=== PATIENT | female | born 1945 | race Caucasian/White ===

== ENCOUNTER 2017-05-04 16:07 | Inpatient (IN) ==
[2017-05-04] MEDS ORDERED: VANCOMYCIN INJ 1,000 MG in SODIUM CHLORIDE 0.9% 250 ML IV STA (16:51)
[2017-05-04] MEDS ORDERED: oxyCODONE/ACETAMINOPHEN 5-325 MG TABLET PO PRN (16:54)
[2017-05-04] MEDS ORDERED: ACETAMINOPHEN 325 MG TABLET PO PRN (16:54)
[2017-05-04] MEDS ORDERED: IBUPROFEN 600 MG TABLET PO PRN (16:54)
[2017-05-04] MEDS ORDERED: ONDANSETRON 4 MG/2 ML VIAL IV PRN (16:54)
[2017-05-04] MEDS ORDERED: DEXTROSE 50% 25 GM/50 ML VIAL IV PRN (16:54)
[2017-05-04] MEDS ORDERED: GLUCAGON 1 MG VIAL IM PRN (16:54)
--- NOTE | 2017-05-04 16:54 | Emergency Department Note ---
Natalie Winston Mantricia, am scribing for, and in the presence of, Armand Avila MD 16:51. Austin Winston Robert M, MD, personally performed the services described in this documentation, ascribed by Niels Estrada in my presence, and it is both accurate and complete 654 . Arrival - Arrival Chief Complaint: Extremity Problem Stated Complaint: left foot ED Nursing Triage Note: PT C/O OPEN,DRAINING DIABETIC WOUND TO left FOOT. PT HAS BEEN SEEING DR SAHNI III- HAS APPOINTMENT LATER IN WEEK. Mode of Arrival: Wheelchair Limitations: No Limitations Source: Patient, Family - History of Present Illness HPI Narrative: Pt is a 72 y/o white female arriving to ED with c/o a wound to left foot that worsened 2 days ago. Pt is a diabetic and states that she has had the wound on her right foot for "a while"; however, she states that the area began to swell, drain, and become extremely red within the past 2 days. She reports that her right foot has always been numb because of the wound, so when she felt her foot hurting, she became worried and removed the dressing from the area. After removing the dressing, she noticed that the wound had become enlarged and began to drain. Pt reports that she has been seeing Dr. Sahni for the wound; however he is out of town this week, so she has an appointment with Dr. Waldron [address] Lara recently performed surgery on her left foot. She reports no other complaints to ED. Onset (ago): hour(s) Consistency: constant Severity: mild Allergies/Adverse Reactions: Allergies Allergy/AdvReac Type Severity Reaction Status Date / Time Enoxaparin [From Lovenox] Allergy HIVES Verified 05/04/17 16:19 Home Medications: Home Medications Medication Instructions Recorded Confirmed Type Aspirin [Ecotrin] 81 mg PO DAILY 08/13/15 05/04/17 History Estrogens(Conj) Tab [Premarin Tab] 0.9 mg PO DAILY 08/13/15 05/04/17 History Levothyroxine Tab [Synthroid Tab] 175 mcg PO DAILY 08/13/15 05/04/17 History Insulin Glargine [Lantus] 35 unit SUBCUT BEDTIME 11/13/15 05/04/17 History Losartan/Hydrochlorothiazide 1 each PO DAILY 11/13/15 05/04/17 History [Losartan-Hctz 50-12.5 mg Tab] Pravastatin [Pravachol] 20 mg PO DAILY 11/13/15 05/04/17 History Pantoprazole Tab [Protonix Tab] 40 mg PO BID #60 tablet 11/19/15 05/04/17 Rx Insulin Lispro [HumaLOG] See Protocol SUBCUT DAILY 05/04/17 05/04/17 History Review of System - Review of System 12 point system: reviewed and no additional remarkable complaints except as stated - Review of System Constitutional: Present: chills. Absent: diaphoresis, fever Cardiovascular: Absent: chest pain Gastrointestinal: Absent: abdominal pain, nausea, vomiting Genitourinary female: Absent: abnormal menses Musculoskeletal: Present: other (wound to left foot). Absent: arm pain, back pain, lower back pain, leg pain, neck pain Skin: Absent: rash, lesions Medical,Surgical,& Family Hx - Medical History Cardio: History of: CHF, Hypertension Neurology: History of: Peripheral Neuropathy No history of: Seizures HEENT: History of: HEENT Problems Endocrine: History of: Diabetes Mellitus (IDDM), Dyslipidemia, Thyroid Disorder Genitourinary: History of: Bladder Problem (incontinence) Gastrointestinal: History of: GERD Musculoskeletal: History of: Back/Neck Problems, Musculoskeletal Problems ( Charcot's joint the right foot) Reproductive: History of: Reproductive Problems (PROLAPSED FEMALE ORGANS) - Surgical History HEENT Surgeries: Surgical HX of: Thyroid Surgery (removal), Tonsilectomy & Adenoidectomy Abdominal Surgeries: Surgical HX of: Cholecystectomy Reproductive Surgeries: Surgical HX of;: Gynecologic Surgery, Hysterectomy Orthopedic Surgeries: Surgical HX of;: Orthopedic Surgery, Total Hip Replacement (right) - Family History Family History: Reports;: Family Cancer (brother-prostrate/colon), Family Diabetes (father, paternal aunt, paternal uncle), Family Hypertension (father) - Social History Smoking Status: Former smoker Frequency of Alcohol Use: None Type of Drug Use: None Exam Vital Signs: Vital Signs Temperature 99.1 F 05/04/17 16:09 Pulse Rate 97 H 05/04/17 16:33 Respiratory Rate 18 05/04/17 16:33 Blood Pressure 151/75 05/04/17 16:33 O2 Sat by Pulse Oximetry 99 05/04/17 16:33 - General General appearance: alert, in no apparent distress - Head Head exam: Present: atraumatic, normocephalic, normal inspection - Eye Eye exam: Present: normal appearance, PERRL, EOMI - ENT ENT exam: Present: normal exam, normal oropharynx, mucous membranes moist, TM's normal bilaterally, normal external ear exam - Neck Neck exam: Present: normal inspection, full ROM, trachea midline. Absent: tenderness - Chest Chest inspection: Present: normal inspection, symmetric chest wall rise. Absent : tenderness - Respiratory Respiratory exam: Present: normal lung sounds bilaterally - Cardiovascular Cardiovascular exam: Present: regular rate, normal rhythm, normal heart sounds - Abdominal Exam Abdominal exam: Present: soft, normal bowel sounds. Absent: distention, tenderness, guarding, rebound - Extremities Exam Extremities exam: Present: full ROM, tenderness, normal capillary refill, other (wound to lateral aspect of left foot with drainage; 2nd wound to lateral aspect of left heel) - Back Exam Back exam: Present: normal inspection, full ROM. Absent: tenderness - Neurological Exam Neurological exam: Present: alert, oriented X3, CN II-XII intact, normal gait, reflexes normal - Psychiatric Psychiatric exam: Present: normal affect, normal mood - Skin Skin exam: Present: warm, dry, intact, normal color Course - Consultations Consultation #1: The patient will be admitted to Dr. Mark Garcia. Dr. Clark data integration analyst. Time: 16:53 Results - Labs CBC & BMP: 05/04/17 16:45 Disposition Clinical Impression: Diabetic infection of left foot, Charcot's arthropathy, diabetic, Hypertension Case discussed with: patient Disposition: Still a Patient Condition: Stable
[2017-05-04 16:57] LABS: Basophils # 0.1 10*3/uL (0.0-0.2); Basophils % 0.4 % (0.0-0.8); Eosinophils # 0.1 10*3/uL (0.0-0.87); Eosinophils % 0.4 % (0.00-10.9); Hematocrit 32.4 VOL% (35.7-47.0); Hemoglobin 11.1 GM/DL (12.0-16.0); Immature Granulocytes % 0.8 %; Immature Granulocytes Absolute 0.13 #; Lymphocytes # 1.9 10*3/uL (1.4-4.0); Lymphocytes % 11.3 % (21.3-54.2); Mean Corpuscular HGB Conc 34.3 GM/DL (32-36); Mean Corpuscular Hemoglobin 29 PG (27-34); Mean Corpuscular Volume 83.3 FL (87-102); Mean Platelet Volume 10.2 FL (9.6-12.0); Monocytes # 0.7 10*3/uL (0.11-0.8); Monocytes % 4.3 % (1.7-12.7); Neutrophils # 14.1 10*3/uL (1.4-7.4); Neutrophils % 82.8 % (38.7-73.9); Platelet Count 379 T/CUMM (130-400); Red Blood Count 3.89 MC/CUMM (3.8-5.5); Red Cell Distribution Width 12.8 % (9.3-17.3); White Blood Count 16.9 T/CUMM (4-12)
[2017-05-04] MEDS ORDERED: VANCOMYCIN 1,000 MG VIAL ONE (17:07)
[2017-05-04 17:24] LABS: Calcium 8.2 MG/DL (8.5-10.1); Magnesium 1.8 MG/DL (1.8-2.4); Osmolality,Calculated 284.1 MOS/KG (273-304)
[2017-05-04] MEDS ORDERED: DIPH/TET/ACEL PERT BOOSTER VACCINE 0.5 ML VIAL IM ONE ×2 (17:29→17:38)
[2017-05-04] MEDS ORDERED: INSULIN LISPRO 100 UNIT/ML SUBCUT STA (17:44)
[2017-05-04] MEDS ORDERED: INSULIN LISPRO 100 UNIT/ML SUBCUT ONE (17:48)
--- NOTE | 2017-05-04 18:19 | Internal Med History&Physical ---
Assessment and Plan (1) Diabetic infection of left foot Status: Acute Assessment and plan: Continue Zosyn, blood cultures sent. Surgery consult done today Current Visit: Yes (2) Charcot's arthropathy, diabetic Status: Acute Assessment and plan: We will get x-ray of the left foot and lower leg, left leg elevation Current Visit: Yes (3) Hypertension Status: Chronic Current Visit: Yes Qualifiers: Hypertension type: essential hypertension Qualified Code(s): I10 - Essential (primary) hypertension (4) Hypothyroidism Status: Chronic Assessment and plan: Continue levothyroxine 175 MCG daily home medication. 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 Ordoñez is a 72 year old female PCP: Dr. Mark Garcia, patient recollects her last appointment with PCP more than 3 months ago. Patient came to the ER with complaints of wound at left foot has worsened since past 2-3 days. Patient has an appointment with surgery in the coming week. Left foot has been swelling, got worse the past week. Noticed it burst open since today a.m. Does not recollect any trauma, has been having chills since 2-3 days. No nausea, vomiting, chest pain, shortness of breath. No headaches, dizziness. Patient has history of diabetes on insulin, mentions her average home glucose readings 132 to 200+ In the ER antibiotics IV started, blood cultures have been sent. Home Medications Medication Instructions Recorded Confirmed Type Aspirin [Ecotrin] 81 mg PO DAILY 08/13/15 05/04/17 History Estrogens(Conj) Tab [Premarin Tab] 0.9 mg PO DAILY 08/13/15 05/04/17 History Levothyroxine Tab [Synthroid Tab] 175 mcg PO DAILY 08/13/15 05/04/17 History Insulin Glargine [Lantus] 35 unit SUBCUT BEDTIME 11/13/15 05/04/17 History Losartan/Hydrochlorothiazide 1 each PO DAILY 11/13/15 05/04/17 History [Losartan-Hctz 50-12.5 mg Tab] Pravastatin [Pravachol] 20 mg PO DAILY 11/13/15 05/04/17 History Pantoprazole Tab [Protonix Tab] 40 mg PO BID #60 tablet 11/19/15 05/04/17 Rx Insulin Lispro [HumaLOG] See Protocol SUBCUT DAILY 05/04/17 05/04/17 History Allergies Allergy/AdvReac Type Severity Reaction Status Date / Time Enoxaparin [From Lovenox] Allergy HIVES Verified 05/04/17 16:19 Medical,Surgical,& Family Hx - Medical History Cardio: History of: CHF, Hypertension Neurology: History of: Peripheral Neuropathy No history of: Seizures HEENT: History of: HEENT Problems Endocrine: History of: Diabetes Mellitus (IDDM), Dyslipidemia, Thyroid Disorder Genitourinary: History of: Bladder Problem (incontinence) Gastrointestinal: History of: GERD Musculoskeletal: History of: Back/Neck Problems, Musculoskeletal Problems ( Charcot's joint the right foot) Reproductive: History of: Reproductive Problems (PROLAPSED FEMALE ORGANS) - Surgical History HEENT Surgeries: Surgical HX of: Thyroid Surgery (removal), Tonsilectomy & Adenoidectomy Abdominal Surgeries: Surgical HX of: Cholecystectomy Reproductive Surgeries: Surgical HX of;: Gynecologic Surgery, Hysterectomy Orthopedic Surgeries: Surgical HX of;: Orthopedic Surgery, Total Hip Replacement (right) - Family History Family History: Reports;: Family Cancer (brother-prostrate/colon), Family Diabetes (father, paternal aunt, paternal uncle), Family Hypertension (father) - Social History Smoking Status: Former smoker Frequency of Alcohol Use: None Type of Drug Use: None - Constitutional Constitutional: Present: as per HPI - EENT Eyes: Present: as per HPI Ears: Present: as per HPI, decreased hearing - Cardiovascular Cardiovascular: Present: as per HPI - Respiratory Respiratory: Present: as per HPI - Gastrointestinal Gastrointestinal: Present: as per HPI - Genitourinary Genitourinary: Present: as per HPI - Musculoskeletal Musculoskeletal: Present: as per HPI - Neurological Neurological: Present: as per HPI Exam - Constitutional Vitals: Period Temp Pulse Resp BP Sys/Rueda Pulse Ox Last 24 Hr 99.1 F-99.1 F 87-97 16-18 151-207/71-84 98-100 Exam: GENERAL APPEARANCE: alert and oriented, pleasant, in no acute distress, in the ER bed. HEENT: normal. Has difficulty hearing. EYES: extraocular movement intact (EOMI), conjunctiva clear, normal. NECK/THYROID: neck supple, full range of motion, no cervical lymphadenopathy, no thyromegaly. HEART: regular rate and rhythm, no murmurs, rubs, gallops. LUNGS: clear to auscultation bilaterally, no wheezes, rales, rhonchi. ABDOMEN: soft, nontender, nondistended, no organomegaly , bowel sounds present. EXTREMITIES: Left foot exam gross swelling of the foot extending to the lower one fourth of the leg. Approximately 8X10 cm irregular erythematous with central ulcer(with eschar) noted in the medial aspect of left foot medial arch. Another lesion noted at the base of the great toe medially with possible pus pocket beneath it,'s size approximate 3 X 4 cm, no active discharge noted at the time of exam. Overall foot cold to touch. Dorsalis pedis not palpable at the left. NEUROLOGIC: alert and oriented, cranial nerves 2-12 grossly intact, Results - Labs CBC & BMP: 05/04/17 16:45 05/04/17 16:45 Lab Results: I have reviewed the past 24 hour labs
--- NOTE | 2017-05-04 19:01 | XRay Report ---
History: Pain Date: 05/04/2017 Study: Left tibia and fibula 2 views Comparison exam: No previous There is no fracture, dislocation, or focal destructive osseous abnormality. Impression: Negative exam PROCEDURE INTERPRETED AT [facility] DEPARTMENT OF RADIOLOGY Final Report Signed by: Dr. Alessandra Balbuena
[2017-05-04] MEDS: INSULIN LISPRO 100 UNIT/ML SUBCUT SCH (20:51)
--- NOTE | 2017-05-04 22:02 | XRay Report ---
History: Diabetic foot ulcer left foot Date: 05/04/2017 Study: Left foot 3 views Comparison exam: October 16, 2014 There is soft tissue swelling with ulceration and soft tissue emphysema medial to the mid foot. There is no plain film sign of osteomyelitis. There is osteopenia. There is moderate osteophyte formation at the dorsal aspect of the midfoot. There is prominent plantar calcaneal spur formation. There is pes planus deformity. Impression: Soft tissue ulceration medial to the mid foot. No plain film signs of osteomyelitis. Degenerative changes of the foot PROCEDURE INTERPRETED AT [facility] DEPARTMENT OF RADIOLOGY Final Report Signed by: Dr. Alessandra Balbuena
[2017-05-04] MEDS: DOCUSATE SODIUM 100 MG CAPSULE PO SCH (22:09)
[2017-05-04] MEDS: PIPERACILLIN/TAZOBACTAM 3,375 MG in SODIUM CHLORIDE 0.9% 100 ML IV SCH (22:09)
[2017-05-05 06:22] LABS: Basophils % 0.2 % (0.0-0.8); Eosinophils # 0.2 10*3/uL (0.0-0.87); Eosinophils % 1.4 % (0.00-10.9); Hematocrit 30.4 VOL% (35.7-47.0); Hemoglobin 10.3 GM/DL (12.0-16.0); Immature Granulocytes % 1.1 %; Lymphocytes # 2.8 10*3/uL (1.4-4.0); Lymphocytes % 15.7 % (21.3-54.2); Mean Corpuscular HGB Conc 33.9 GM/DL (32-36); Mean Corpuscular Hemoglobin 29 PG (27-34); Mean Platelet Volume 10.6 FL (9.6-12.0); Monocytes # 1.1 10*3/uL (0.11-0.8); Monocytes % 6.5 % (1.7-12.7); Neutrophils # 13.2 10*3/uL (1.4-7.4); Neutrophils % 75.1 % (38.7-73.9); Platelet Count 354 T/CUMM (130-400); Red Blood Count 3.62 MC/CUMM (3.8-5.5); Red Cell Distribution Width 12.8 % (9.3-17.3); White Blood Count 17.6 T/CUMM (4-12)
[2017-05-05] MEDS: PIPERACILLIN/TAZOBACTAM 3,375 MG in SODIUM CHLORIDE 0.9% 100 ML IV SCH ×3 (06:31→23:25)
[2017-05-05] MEDS: LEVOTHYROXINE 175 MCG TABLET PO SCH (06:31)
[2017-05-05 06:55] LABS: Albumin 2.1 G/DL (3.4-5.0); Calcium 8.1 MG/DL (8.5-10.1); Potassium 4.7 MMOL/L (3.5-5.1); Total Protein 6.2 G/DL (6.4-8.3)
[2017-05-05 06:59] LABS: Free T4 (Free Thyroxine) 1.43 NG/DL (0.76-1.46); Thyroid Stimulating Hormone 0.304 uIU/ml (0.358-3.74)
[2017-05-05] MEDS: INSULIN LISPRO 100 UNIT/ML SUBCUT SCH ×4 (09:44→21:12)
[2017-05-05] MEDS: PANTOPRAZOLE 40 MG TABLET PO SCH (09:44)
[2017-05-05] MEDS: DOCUSATE SODIUM 100 MG CAPSULE PO SCH (09:44)
--- NOTE | 2017-05-05 09:44 | Internal Med Progress Note ---
Assessment and Plan (1) Diabetic infection of left foot Status: Acute Assessment and plan: Continue Zosyn, blood cultures sent. Surgery consult Current Visit: Yes (2) Charcot's arthropathy, diabetic Status: Acute Current Visit: Yes (3) Hypertension Status: Chronic Current Visit: Yes Qualifiers: Qualified Code(s): I10 - Essential (primary) hypertension (4) Hypothyroidism Status: Chronic Assessment and plan: TSH 0.304 low, T4 1.43. Adjust Synthroid medication to 150 mcg Current Visit: Yes (5) Type 2 diabetes mellitus Status: Chronic Assessment and plan: Continue insulin, fingerstick glucose with meals, Current Visit: No Internal Medicine - PN: Subj Interval history: PCP: Dr. Garcia, Patient seen and examined on second-floor, patient is lying in the bed comfortably. Mentions left leg, foot discomfort, throbbing sensation. No overnight events reported by the nurse. No fever, nausea, vomiting, chest pain, shortness of breath. Multiplex Operator on the case: Surgery Exam (Progress Note) - Constitutional Vitals: Period Temp Pulse Resp BP Sys/Rueda Pulse Ox Last 24 Hr 98.3 F-99.5 F 77-97 16-20 106-207/60-84 95-100 Exam: GENERAL APPEARANCE: alert and oriented, pleasant, in no acute distress, HEENT: Has difficulty hearing. EYES: extraocular movement intact (EOMI), conjunctiva clear, normal. NECK/THYROID: neck supple, full range of motion, . HEART: regular rate and rhythm, no murmurs, rubs, gallops. LUNGS: clear to auscultation bilaterally, no wheezes, rales, rhonchi. ABDOMEN: soft, nontender, nondistended, no organomegaly , bowel sounds present. EXTREMITIES: Left foot exam gross swelling of the foot extending to the lower one fourth of the leg. Approximately 8X10 cm irregular erythematous with central ulcer(with eschar) noted in the medial aspect of left foot medial arch. Another lesion noted at the base of the great toe medially with possible pus pocket beneath it,'s size approximate 3 X 4 cm, no active discharge noted at the time of exam. Dorsalis pedis not palpable at the left. NEUROLOGIC: alert and oriented, cranial nerves 2-12 grossly intact, Results - Labs CBC & BMP: 05/05/17 05:18 05/05/17 05:18 Lab Results: I have reviewed the past 24 hour labs - Impressions X-ray left foot from 05/04/2017, Impression::Soft tissue ulceration medial to the mid foot. No plain film signs of osteomyelitis. Degenerative changes of the foot. X-ray of left leg negative
--- NOTE | 2017-05-05 09:44 | General Surgery Consult Note ---
Assessment and Plan - Time spent with patient Time spent with patient: Greater than 30 minutes (1) Diabetic infection of left foot Status: Acute Assessment and plan: 05/05/2017. Acute diabetic infection of the left foot likely with abscess. Our plan is to take her to surgery for incision and drainage with excisional debridement today. This was discussed with the patient, who understands and agrees to this plan. Hopefully will be able to get this area cleaned off and initiate some good wound care as well as obtain some good deep tissue cultures. With no gross evidence of osteomyelitis, we may have a good chance of seeing this area a lot. Current Visit: Yes History of Present Illness Chief complaint: Left foot abscess History of present illness: Ms. Ordoñez is a 72 year old female Home Medications Medication Instructions Recorded Confirmed Type Aspirin [Ecotrin] 81 mg PO DAILY 08/13/15 05/04/17 History Estrogens(Conj) Tab [Premarin Tab] 0.9 mg PO DAILY 08/13/15 05/04/17 History Levothyroxine Tab [Synthroid Tab] 175 mcg PO DAILY 08/13/15 05/04/17 History Insulin Glargine [Lantus] 35 unit SUBCUT BEDTIME 11/13/15 05/04/17 History Losartan/Hydrochlorothiazide 1 each PO DAILY 11/13/15 05/04/17 History [Losartan-Hctz 50-12.5 mg Tab] Pravastatin [Pravachol] 20 mg PO DAILY 11/13/15 05/04/17 History Pantoprazole Tab [Protonix Tab] 40 mg PO BID #60 tablet 11/19/15 05/04/17 Rx Insulin Lispro [HumaLOG] See Protocol SUBCUT DAILY 05/04/17 05/04/17 History Allergies Allergy/AdvReac Type Severity Reaction Status Date / Time Enoxaparin [From Lovenox] Allergy HIVES Verified 05/04/17 16:19 Medical,Surgical,& Family Hx - Medical History Cardio: History of: CHF, Hypertension Neurology: History of: Peripheral Neuropathy No history of: Seizures HEENT: History of: HEENT Problems Endocrine: History of: Diabetes Mellitus (IDDM), Dyslipidemia, Thyroid Disorder Genitourinary: History of: Bladder Problem (incontinence) Gastrointestinal: History of: GERD Musculoskeletal: History of: Back/Neck Problems, Musculoskeletal Problems ( Charcot's joint the right foot) Reproductive: History of: Reproductive Problems (PROLAPSED FEMALE ORGANS) - Surgical History HEENT Surgeries: Surgical HX of: Thyroid Surgery (removal), Tonsilectomy & Adenoidectomy Abdominal Surgeries: Surgical HX of: Cholecystectomy Reproductive Surgeries: Surgical HX of;: Gynecologic Surgery, Hysterectomy Orthopedic Surgeries: Surgical HX of;: Orthopedic Surgery, Total Hip Replacement (right) - Family History Family History: Reports;: Family Cancer (brother-prostrate/colon), Family Diabetes (father, paternal aunt, paternal uncle), Family Hypertension (father) - Social History Smoking Status: Former smoker Frequency of Alcohol Use: None Type of Drug Use: None Exam - Constitutional Vitals: Period Temp Pulse Resp BP Sys/Rueda Pulse Ox Last 24 Hr 98.3 F-99.5 F 77-97 16-20 106-207/60-84 95-100 General appearance: normal weight, no acute distress - Head Head exam: Present: normocephalic - Eye Eye exam: Present: EOMI Pupils: Present: CHAYO - ENT Mouth exam: Present: normal voice, dry mucosa - Neck Neck exam: Present: trachea midline - Respiratory Respiratory exam: Present: clear to auscultation bilaterally. Absent: rales, wheezes - Cardiovascular Cardiovascular exam: Present: RRR - GI/Abdominal GI/Abdominal exam: Present: hypoactive bowel sounds, soft. Absent: tenderness - Extremities Exam Extremities exam: Present: other (Bilateral medial midfoot relaxation consistent with Charcot diabetic disease. At the medial left midfoot is approximately 2 x 3 cm dark eschar with boggy tissue. When gently pressed this excludes purulent material. The periwound skin and is mildly erythematous. In addition, she has a soft pale eschar at the medial first metatarsal head: This is approximately 1.5 x 1.5 cm. This is a more superficial eschar is stable. Pulses are diminished bilaterally, but are faintly palpable at 1+ the DP and PT sites. Feet are generally warm to touch, although there is some delayed capillary refill at the toes, approximately 3 seconds..). Absent: calf tenderness, edema - Neurological Exam Neurological exam: Present: alert, oriented X3, motor sensory deficit (She has bilateral loss of protective sensation in both feet in all cardinal areas. There are no gross diabetic pressure changes of the feet, no pressure ulcers noted in particular except for the midfoot left ulceration/abscess. I see no pre-ulcerative calluses or the pressure changes.), reflexes normal Results - Labs CBC & BMP: 05/05/17 05:18 05/05/17 05:18 Lab Results: I have reviewed the past 24 hour labs (WBC elevated. Fasting glucose is 198, however nurses noted that her glucose has been as high as 500 since admission. X-ray shows no gross evidence of osteomyelitis.)
--- NOTE | 2017-05-05 10:07 | EKG Report ---
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
[2017-05-05] MEDS ORDERED: FAMOTIDINE 20 MG TABLET PO ONE (10:09)
[2017-05-05] MEDS ORDERED: INSULIN REGULAR 100 UNIT/ML IV ONE (10:22)
[2017-05-05] MEDS ORDERED: ROPIVACAINE 0.5% 30 ML VIAL ONE (10:35)
--- NOTE | 2017-05-05 10:55 | XRay Report ---
History is preop respiratory screening Comparison 11/13/2015 The heart is normal in size. The lungs are clear. Impression: No acute pathology seen. PROCEDURE INTERPRETED AT [facility] DEPARTMENT OF RADIOLOGY Final Report Signed by: Dr. Marti Robbins
[2017-05-05] MEDS ORDERED: BUPIVACAINE 0.25% 50 ML VIAL ONE (12:32)
[2017-05-05] MEDS ORDERED: HYDROmorphone 2 MG/1 ML VIAL IV PRN (12:52)
--- NOTE | 2017-05-05 12:52 | Operative Note ---
Date of procedure: 05/05/17 Pre-op diagnosis: Diabetic ulcer left midfoot and first metatarsal head Post-op diagnosis: other (Diabetic ulcer of the left midfoot with deep space infection. Also refresh first metatarsal head superficial) Procedure: Operative note: Preoperative diagnosis: Diabetic ulcer left midfoot and first metatarsal head Postoperative diagnosis: Diabetic ulcer left midfoot with deep space infection and first metatarsal head Procedure: 1. Excisional debridement of skin necrotic tissue necrotic fat and fascia tendon and muscle left midfoot with drainage of abscess 2. Excisional debridement of skin of the first metatarsal head. Surgeon Dr. Loera Grey Washer Renuka Souza, LOSS PREVENTION DETECTIVE ACNP Anesthesia was general Brief history: 72-year-old diabetic female who has had multiple surgeries on her feet has been doing fairly well but comes in now with a new area on the mid part of her left foot with a large amount of necrotic tissue present in this area. Her glucoses are elevated and there is evidence of purulence in the deep tissues of this area. There is a second ulcer that is more superficial and first metatarsal head. Procedure: With patient prepped and draped in a sterile fashion timeout and antibiotics completed we approach this area the foot itself the pre-debridement wound of the mid for foot is 4.2 x 1.5 x 2 were the ulcer of the first metatarsal head is got a measure about 2 cm x 2 cm with a good bit of necrotic loose skin above it. At this point we went ahead and I went to the midfoot area and then made an incision directly in the midportion of this necrotic tissue we dropped into the dense soupy subcutaneous tissue and found purulence here that we cultured aerobically and anaerobically with the swabs. I then took the scissors begin to debride the rest of the necrotic tissue away from this wound going around it is much as I could. There was some deep space infection into the deep subtenons tissue and the fascia and tendon of the midfoot. We debrided this tissue away since it was loose and necrotic at this time. We then debrided down to muscle and the very little muscle away from this area. Once we had this debrided and tissue taken for culture and we washed irrigated with saline solution. The post debridement wound is now 5.6 x 3.9 x 0.6 cm. With that completed then I approach this area of the first metatarsal head area. Take the scissors begin to debride the loose skin off this and around this area. He came off fairly easily and it revealed a small superficial ulcer present in this area that did not require a lot more debridement. It now measures 1.6 x 1.6 x 0.1 cm. With that completed then we put a bulky dressing on think the patient recovery room. Estimated blood loss 5 cc Sponge count correct 2 drains none Complications none Condition stable satisfactory Anesthesia: FLEX Surgeon / Physician: Armand Loera Grey Washer: Renuka Souza Estimated blood loss: other (10 cc) Specimens: other (Tissue and swabs for cultures) Condition: stable Disposition: floor Results - Labs CBC & BMP: 05/05/17 05:18 05/05/17 05:18 Discharge Plan - Discharge Medications No Action Levothyroxine Tab [Synthroid Tab] 175 mcg PO DAILY Estrogens(Conj) Tab [Premarin Tab] 0.9 mg PO DAILY Aspirin [Ecotrin] 81 mg PO DAILY Insulin Glargine [Lantus] 35 unit SUBCUT BEDTIME Pravastatin [Pravachol] 20 mg PO DAILY Losartan/Hydrochlorothiazide [Losartan-Hctz 50-12.5 mg Tab] 1 each PO DAILY Pantoprazole Tab [Protonix Tab] 40 mg PO BID #60 tablet Insulin Lispro [HumaLOG] See Protocol SUBCUT DAILY - Follow Up or Referral - Forms/Instructions
--- NOTE | 2017-05-05 13:04 | Anesthesia Post-Op ---
Anesthesia Post OP - Post Ansesthetic Evaluation Patient seen in post op: Yes Resp: within normal limits CV: within normal limits Mental: within normal limits Temp: within normal limits [id number]: within normal limits Nausea and Vomiting: within normal limits Pain: within normal limits
[2017-05-05] MEDS ORDERED: SEVOFLURANE 1 UNIT/15 MINUTE INH ONE (13:08)
[2017-05-05] MEDS ORDERED: fentaNYL 100 MCG/2 ML VIAL ONE (13:08)
[2017-05-05] MEDS ORDERED: SCOPOLAMINE 1.5 MG PATCH TRANSDERM ONE (13:08)
[2017-05-05] MEDS ORDERED: MIDAZOLAM 2 MG/2 ML VIAL ONE (13:08)
[2017-05-05] MEDS: SODIUM CHLORIDE 0.9% 1,000 ML IV SCH (14:57)
[2017-05-05] MEDS: ceFAZolin 2,000 MG in PREMIX 1 EACH IV SCH (21:11)
[2017-05-06] MEDS: ceFAZolin 2,000 MG in PREMIX 1 EACH IV SCH (03:08)
[2017-05-06] MEDS: SODIUM CHLORIDE 0.9% 1,000 ML IV SCH (03:08)
[2017-05-06] MEDS: PIPERACILLIN/TAZOBACTAM 3,375 MG in SODIUM CHLORIDE 0.9% 100 ML IV SCH ×3 (04:26→23:07)
[2017-05-06] MEDS: LEVOTHYROXINE 175 MCG TABLET PO SCH (06:11)
[2017-05-06 06:24] LABS: Basophils # 0.1 10*3/uL (0.0-0.2); Basophils % 0.4 % (0.0-0.8); Eosinophils # 0.3 10*3/uL (0.0-0.87); Eosinophils % 1.8 % (0.00-10.9); Hematocrit 29.6 VOL% (35.7-47.0); Hemoglobin 9.9 GM/DL (12.0-16.0); Immature Granulocytes % 0.7 %; Immature Granulocytes Absolute 0.09 #; Lymphocytes # 2.4 10*3/uL (1.4-4.0); Lymphocytes % 17.4 % (21.3-54.2); Mean Corpuscular HGB Conc 33.4 GM/DL (32-36); Mean Corpuscular Hemoglobin 28 PG (27-34); Mean Corpuscular Volume 84.8 FL (87-102); Mean Platelet Volume 10.2 FL (9.6-12.0); Monocytes # 1.2 10*3/uL (0.11-0.8); Monocytes % 8.5 % (1.7-12.7); Neutrophils # 9.6 10*3/uL (1.4-7.4); Neutrophils % 71.2 % (38.7-73.9); Platelet Count 343 T/CUMM (130-400); Red Blood Count 3.49 MC/CUMM (3.8-5.5); White Blood Count 13.5 T/CUMM (4-12)
[2017-05-06 06:54] LABS: Alanine Aminotransferase 11 U/L (13-56); Albumin 1.9 G/DL (3.4-5.0); Alkaline Phosphatase 149 U/L (45-117); Aspartate Amino Transferase 9 U/L (0-37); Bilirubin,Total < 0.39 MG/DL (0.2-1.0); Blood Urea Nitrogen 21 MG/DL (7-18); Calcium 7.6 MG/DL (8.5-10.1); Glucose 177 MG/DL (74-106); Osmolality,Calculated 283.5 MOS/KG (273-304); Potassium 4.5 MMOL/L (3.5-5.1); Sodium 139 MMOL/L (136-145); Total Protein 5.8 G/DL (6.4-8.3)
[2017-05-06] MEDS ORDERED: ENOXAPARIN 30 MG/0.3 ML SYRINGE SUBCUT SCH (07:00)
--- NOTE | 2017-05-06 07:24 | Family Practice Progress Note ---
Family Practice - PN: Subj Interval history: Patient is doing well status post debridement left foot ulceration. Her blood sugars hovering around 200 but she is not on her usual basal insulin. This will be restarted. Patient states she has a little throbbing in the foot but no significant pain or discomfort. She has not had any fever or chills and vital signs are stable this morning. Exam (Progress Note) - Constitutional Vitals: Period Temp Pulse Resp BP Sys/Rueda Pulse Ox Last 24 Hr 98 F-99.8 F 69-92 16-20 106-177/49-92 93-100 Exam: Objective well-developed white female no acute distress. She is able give good history. Cardiovascular: Heart rates regular without murmurs. Respiratory: Lungs clear to auscultation bilaterally. Extremities: Patient has a large dressing on the left foot which was not removed. Results - Labs CBC & BMP: 05/06/17 05:27 05/06/17 05:27 Lab Results: I have reviewed the past 24 hour labs Assessment and Plan (1) Diabetic foot ulcer Status: Acute Assessment and plan: 04/06/2017: Patient's doing well after debridement. Blood sugars are elevated and will restart her basal insulin Current Visit: Yes
--- NOTE | 2017-05-06 09:32 | General Surgery Progress Note ---
Assessment and Plan (1) Diabetic infection of left foot Status: Acute Assessment and plan: 05/05/2017. Acute diabetic infection of the left foot likely with abscess. Our plan is to take her to surgery for incision and drainage with excisional debridement today. This was discussed with the patient, who understands and agrees to this plan. Hopefully will be able to get this area cleaned off and initiate some good wound care as well as obtain some good deep tissue cultures. With no gross evidence of osteomyelitis, we may have a good chance of seeing this area a lot. 05/06/2017 Stable postop incision and drainage with excisional debridement of left medial midfoot diabetic foot wound. Will start wound care today and await final cultures. Current Visit: Yes Subjective Patient reports: Present: no new complaints. Absent: nausea, vomiting, shortness of breath Exam - Constitutional Vitals: Period Temp Pulse Resp BP Sys/Rueda Pulse Ox Last 24 Hr 97.7 F-99.8 F 69-92 16-20 123-177/49-92 93-100 General appearance: no acute distress - Respiratory Respiratory exam: Present: other. Absent: rales (She has a dry cough this morning but no wheezes or rales), wheezes - Cardiovascular Cardiovascular exam: Present: RRR - GI/Abdominal GI/Abdominal exam: Present: soft. Absent: tenderness - Extremities Exam Extremities exam: Present: other (Left lower extremity dressing is clean and dry ; wound care nurses are here to change dressing, however the supplies have not arrived yet. She has mild postop discomfort, but toes are warm to touch and she has good capillary refill.) Results - Labs CBC & BMP: 05/06/17 05:27 05/06/17 05:27 Lab Results: I have reviewed the past 24 hour labs (Postop labs noted)
[2017-05-06] MEDS: INSULIN LISPRO 100 UNIT/ML SUBCUT SCH ×4 (10:13→23:14)
[2017-05-06] MEDS: LOSARTAN/HCTZ 50-12.5 MG TABLET PO SCH (10:14)
[2017-05-06] MEDS: PANTOPRAZOLE 40 MG TABLET PO SCH (10:14)
[2017-05-06] MEDS: ASPIRIN EC 81 MG TABLET PO SCH (10:14)
--- NOTE | 2017-05-06 11:45 | Physician Query Form ---
CLICK EDIT DOCUMENT TO SELECT QUERY ANSWER --> OK --> SIGN Cindi Mosley RN Clinical [employer] W) [phone] (f) [phone] [email or web address] PROVIDERS: Make your selection(s) from the choices in EACH section by typing an "x" and enter comments in the comment section. Please use your independent medical judgment in providing your response. This request does not imply that any particular answer is desired or expected. CLINICAL INDICATORS: (Providers should not edit this section) Based on lab results of creatinine on admission of 1.90 with a GFR of 23 and decreased to 1.30. Pt. treated with IV fluids of Normal Saline. Clarify which of the following most accurately represents the patient's renal status: ( ) Acute kidney injury (non-traumatic) ( ) Acute renal failure (x ) Acute renal failure with underlying Chronic Kidney Disease (CKD) - please provide stage below (x ) CKD - please provide stage below ( ) Other, please specify: ( ) Clinically unable to determine Chronic Kidney Disease Stages Source: National Kidney Disease Foundation ( ) Stage I (eGFR > or = 90) ( ) Stage II (eGFR 60 - 89) ( ) Stage III (eGFR 30 - 59) ( x) Stage IV (eGFR 15 - 29) ( ) Stage V (eGFR < 15 or dialysis) COMMENTS: PLEASE ALSO DOCUMENT RESPONSE IN PROGRESS NOTES AND/OR DISCHARGE SUMMARY Use of terms such as suspected, likely, or probable (associated with a specific diagnosis that is being evaluated, monitored, or treated as if it exists) are acceptable and can be restated in the discharge summary if not ruled out. MTDD
--- NOTE | 2017-05-06 11:47 | Physician Query Form ---
CLICK EDIT DOCUMENT TO SELECT QUERY ANSWER --> OK --> SIGN Cindi Mosley RN Clinical [employer] [place] W) [phone] (f) [phone] [email or web address] PROVIDERS: Make your selection(s) from the choices in EACH section by typing an "x" and enter comments in the comment section. Please use your independent medical judgment in providing your response. This request does not imply that any particular answer is desired or expected. CLINICAL INDICATORS: (Providers should not edit this section) Based on lab result of sodium of 128. Pt. treated with IV fluids of Normal Saline. Based on the above, could you clarify the appropriate diagnosis, if significant , that supports the above abnormalities and additional evaluation, monitoring, and/or treatment rendered: (x ) Pt. treated for hyponatremia ( ) Pt. not treated for hyponatremia ( ) Other, please specify: ( ) Clinically unable to determine COMMENTS: PLEASE ALSO DOCUMENT RESPONSE IN PROGRESS NOTES AND/OR DISCHARGE SUMMARY Use of terms such as suspected, likely, or probable (associated with a specific diagnosis that is being evaluated, monitored, or treated as if it exists) are acceptable and can be restated in the discharge summary if not ruled out. [facility]
[2017-05-06] MEDS: SODIUM HYPOCHLORITE 0.25% IRRIG 473 ML BOTTLE TOP SCH (12:00)
[2017-05-06] MEDS: ESTROGENS (CONJ) 0.3 MG TABLET PO SCH (12:01)
[2017-05-06] MEDS ORDERED: LIDOCAINE 1% 5 ML VIAL ONE (12:51)
[2017-05-06] MEDS ORDERED: PROPOFOL 200 MG/20 ML VIAL IV ONE (12:51)
[2017-05-06] MEDS ORDERED: ONDANSETRON 4 MG/2 ML VIAL ONE (12:51)
[2017-05-06] MEDS: INSULIN GLARGINE 100 UNIT/ML SUBCUT SCH (23:11)
[2017-05-06] MEDS: PRAVASTATIN 20 MG TABLET PO SCH (23:11)
[2017-05-07] MEDS: PIPERACILLIN/TAZOBACTAM 3,375 MG in SODIUM CHLORIDE 0.9% 100 ML IV SCH (05:18)
--- NOTE | 2017-05-07 07:34 | Family Practice Progress Note ---
Family Practice - PN: Subj Interval history: Patient had a good night states her left foot is feeling little bit better. Her culture showed methicillin sensitive staph aureus which should be covered by her Zosyn. She is not having any nausea or vomiting and she denies any abdominal pain. Exam (Progress Note) - Constitutional Vitals: Period Temp Pulse Resp BP Sys/Rueda Pulse Ox Last 24 Hr 96.3 F-98.7 F 66-78 18-22 130-155/63-89 94-98 Exam: Objective well-developed white female no acute distress. She is in good spirits this morning. Cardiovascular: Heart rates regular without murmurs. Respiratory: Lungs clear to auscultation bilaterally. Extremities: Patient has a large dressing on the left foot which was not removed. Results - Labs CBC & BMP: 05/06/17 05:27 05/06/17 05:27 Lab Results: I have reviewed the past 24 hour labs Assessment and Plan (1) Diabetic foot ulcer Status: Acute Assessment and plan: 05/06/2017: Patient's doing well after debridement. Blood sugars are elevated and will restart her basal insulin 05/07/2017: Continue present IV antibiotic therapy. Blood sugars are still elevated. Current Visit: Yes
--- NOTE | 2017-05-07 09:01 | General Surgery Progress Note ---
Assessment and Plan (1) Diabetic infection of left foot Status: Acute Assessment and plan: 05/05/2017. Acute diabetic infection of the left foot likely with abscess. Our plan is to take her to surgery for incision and drainage with excisional debridement today. This was discussed with the patient, who understands and agrees to this plan. Hopefully will be able to get this area cleaned off and initiate some good wound care as well as obtain some good deep tissue cultures. With no gross evidence of osteomyelitis, we may have a good chance of seeing this area a lot. 05/06/2017 Stable postop incision and drainage with excisional debridement of left medial midfoot diabetic foot wound. Will start wound care today and await final cultures. 05/07/2017. Diabetic foot infection looks to be improving post I&D with excisional debridement. Unfortunately we are losing IV coverage sites, but with the wound responding so well to surgical debridement and topical care, we could consider transitioning to just p.o. antibiotics and await final cultures at this point. I believe we could look at what her discharge options would be as well. She would like to go home, with family to assist her with care. Will ask social scientist to see what resources are available. Current Visit: Yes Subjective Patient reports: Present: feels better, tolerating a regular diet Exam - Constitutional Vitals: Period Temp Pulse Resp BP Sys/Rueda Pulse Ox Last 24 Hr 96.3 F-98.7 F 66-73 18-22 126-148/63-95 94-98 General appearance: no acute distress - Extremities Exam Extremities exam: Present: other (Left lower extremity postop wound is clean without bleeding. There is no necrotic tissue seen. There is no purulence. The erythema is resolving and there is no edema. She is appropriately tender.) Results - Labs CBC & BMP: 05/06/17 05:27 05/06/17 05:27 Lab Results: I have reviewed the past 24 hour labs (Labs are stable, with WBC at 13,500. Micro shows methicillin sensitive staph aureus on admission wound culture, with continued gram-positive cocci on the preliminary surgical cultures )
[2017-05-07] MEDS: LOSARTAN/HCTZ 50-12.5 MG TABLET PO SCH (09:49)
[2017-05-07] MEDS: LEVOTHYROXINE 175 MCG TABLET PO SCH (09:49)
[2017-05-07] MEDS: ASPIRIN EC 81 MG TABLET PO SCH (09:49)
[2017-05-07] MEDS: INSULIN LISPRO 100 UNIT/ML SUBCUT SCH ×4 (09:49→22:58)
[2017-05-07] MEDS: PANTOPRAZOLE 40 MG TABLET PO SCH (09:49)
[2017-05-07] MEDS: SODIUM HYPOCHLORITE 0.25% IRRIG 473 ML BOTTLE TOP SCH (09:51)
[2017-05-07] MEDS: SULFAMETHOX/TRIMETHOPRIM 800-160 MG TABLET PO SCH ×2 (12:44→22:57)
[2017-05-07] MEDS: ESTROGENS (CONJ) 0.3 MG TABLET PO SCH (14:05)
[2017-05-07] MEDS: INSULIN GLARGINE 100 UNIT/ML SUBCUT SCH (22:57)
[2017-05-07] MEDS: PRAVASTATIN 20 MG TABLET PO SCH (22:57)
[2017-05-08 06:31] LABS: Basophils % 0.3 % (0.0-0.8); Eosinophils # 0.2 10*3/uL (0.0-0.87); Eosinophils % 2.1 % (0.00-10.9); Hematocrit 28.4 VOL% (35.7-47.0); Hemoglobin 9.5 GM/DL (12.0-16.0); Immature Granulocytes % 0.7 %; Immature Granulocytes Absolute 0.07 #; Lymphocytes % 19.9 % (21.3-54.2); Mean Corpuscular HGB Conc 33.5 GM/DL (32-36); Mean Corpuscular Hemoglobin 28 PG (27-34); Mean Platelet Volume 9.7 FL (9.6-12.0); Monocytes # 0.7 10*3/uL (0.11-0.8); Monocytes % 7.1 % (1.7-12.7); Neutrophils # 6.9 10*3/uL (1.4-7.4); Neutrophils % 69.9 % (38.7-73.9); Platelet Count 346 T/CUMM (130-400); Red Blood Count 3.34 MC/CUMM (3.8-5.5); White Blood Count 9.8 T/CUMM (4-12)
[2017-05-08 07:10] LABS: Calcium 8.4 MG/DL (8.5-10.1); Osmolality,Calculated 278.3 MOS/KG (273-304); Potassium 3.8 MMOL/L (3.5-5.1)
[2017-05-08] MEDS: LEVOTHYROXINE 175 MCG TABLET PO SCH (07:37)
--- NOTE | 2017-05-08 08:15 | Family Practice Progress Note ---
Family Practice - PN: Subj Interval history: Patient states she had a good night and is ready to go home if possible. I told her she would have to get Dr. Loera's blessing for that to occur. Cultures thus far show MSSA sensitive to oral Bactrim DS. Blood sugars are improved with resumption of her basal insulin. Exam (Progress Note) - Constitutional Vitals: Period Temp Pulse Resp BP Sys/Rueda Pulse Ox Last 24 Hr 96.8 F-98.7 F 67-73 18-20 144-158/62-80 94-99 Exam: Objective well-developed white female no acute distress. She is in good spirits this morning. She has just finished her breakfast Cardiovascular: Heart rates regular without murmurs. Respiratory: Lungs clear to auscultation bilaterally. Extremities: Patient has a large dressing on the left foot which was not removed. Results - Labs CBC & BMP: 05/08/17 06:20 05/08/17 06:20 Lab Results: I have reviewed the past 24 hour labs Assessment and Plan (1) Diabetic foot ulcer Status: Acute Assessment and plan: 05/06/2017: Patient's doing well after debridement. Blood sugars are elevated and will restart her basal insulin 05/07/2017: Continue present IV antibiotic therapy. Blood sugars are still elevated. 05/08/2017: Patient was switched to p.o. Bactrim DS. Will discharge when Dr. Loera is satisfied with her progress. Current Visit: Yes
[2017-05-08] MEDS: INSULIN LISPRO 100 UNIT/ML SUBCUT SCH ×2 (08:44→12:32)
[2017-05-08] MEDS: LOSARTAN/HCTZ 50-12.5 MG TABLET PO SCH (09:18)
[2017-05-08] MEDS: PANTOPRAZOLE 40 MG TABLET PO SCH (09:18)
[2017-05-08] MEDS: SULFAMETHOX/TRIMETHOPRIM 800-160 MG TABLET PO SCH (09:18)
[2017-05-08] MEDS: ESTROGENS (CONJ) 0.3 MG TABLET PO SCH (09:18)
[2017-05-08] MEDS: ASPIRIN EC 81 MG TABLET PO SCH (09:19)
[2017-05-08] MEDS: SODIUM HYPOCHLORITE 0.25% IRRIG 473 ML BOTTLE TOP SCH (09:19)
--- NOTE | 2017-05-08 11:42 | General Surgery Progress Note ---
Assessment and Plan - Time spent with patient Time spent with patient: Greater than 30 minutes (1) Diabetic infection of left foot Status: Acute Assessment and plan: 05/05/2017. Acute diabetic infection of the left foot likely with abscess. Our plan is to take her to surgery for incision and drainage with excisional debridement today. This was discussed with the patient, who understands and agrees to this plan. Hopefully will be able to get this area cleaned off and initiate some good wound care as well as obtain some good deep tissue cultures. With no gross evidence of osteomyelitis, we may have a good chance of seeing this area a lot. 05/06/2017 Stable postop incision and drainage with excisional debridement of left medial midfoot diabetic foot wound. Will start wound care today and await final cultures. 05/07/2017. Diabetic foot infection looks to be improving post I&D with excisional debridement. Unfortunately we are losing IV coverage sites, but with the wound responding so well to surgical debridement and topical care, we could consider transitioning to just p.o. antibiotics and await final cultures at this point. I believe we could look at what her discharge options would be as well. She would like to go home, with family to assist her with care. Will ask psychosocial rehabilitation counselor to see what resources are available. 05/07/2017. Left lower extremity diabetic foot infection is stable postop. I have spoken with Mrs. Ordoñez regarding home health versus swing bed. Case management has assisted us with reassuring her that she does in fact have home health benefits, and she is now willing to be discharged with home health. I agree with Dr. Garcia that she can be discharged with p.o. Bactrim and local wound care per home health until her final cultures are available. She does have support at home in the way of her son who lives with her, and a close friend who is able to help her with wound care. I have spoken with Raeann at [facility], who has experience with [employer] and have the patient has chosen us her agency. It is okay with us for her to be discharged with the above plan in place, and will plan to have her follow-up at [facility] [place] with Dr. Butcher in 2 to 3 weeks unless she has problems sooner. Current Visit: Yes Subjective Patient reports: Present: pain is less, tolerating a regular diet Exam - Constitutional Vitals: Period Temp Pulse Resp BP Sys/Rueda Pulse Ox Last 24 Hr 96.8 F-98.7 F 67-84 18-20 144-158/62-80 94-99 General appearance: no acute distress - Extremities Exam Extremities exam: Present: other (Left lower leg wound is clean today, without slough, purulence, or ischemic tissue. The erythema is resolving well. There is no edema. There is no new pressure change. It is not unusually tender.) Results - Labs CBC & BMP: 05/08/17 06:20 05/08/17 06:20 Lab Results: I have reviewed the past 24 hour labs (Labs are stable postop. Micro indicates gram-positive cocci.) Specialty Discharge - Follow Up or Referrals Follow up with: Mark Garcia MD [Physician] - 05/28/17 11:00 am Armand Butcher MD [Physician] - 05/26/17 8:00 am (YOU HAAVE AN APPOINTMENT WITH DR BUTCHER AT [facility]....[phone] )
[2017-05-08 12:06] VITALS: BP 158/74
== END 2017-05-08 13:45 | disposition home health service (06) | DRG 623 ==
LOC: N.ED 16:07 → N.EDINP 16:54 → N.2E 17:38
PROVIDERS: ADMIT Family Medicine; ATTEND Family Medicine

== ENCOUNTER 2018-07-02 12:29 | Inpatient (IN) ==
[2018-07-02 14:36] LABS: Basophils # 0.1 10*3/uL (0.0-0.2); Basophils % 0.6 % (0.0-0.8); Hematocrit 41.6 VOL% (35.7-47.0); Hemoglobin 14.4 GM/DL (12.0-16.0); Immature Granulocytes % 1.1 %; Immature Granulocytes Absolute 0.09 #; Lymphocytes # 1.6 10*3/uL (1.4-4.0); Lymphocytes % 19.3 % (21.3-54.2); Mean Corpuscular HGB Conc 34.6 GM/DL (32-36); Mean Corpuscular Hemoglobin 28 PG (27-34); Mean Corpuscular Volume 81.9 FL (87-102); Mean Platelet Volume 9.9 FL (9.6-12.0); Monocytes # 0.6 10*3/uL (0.11-0.8); Neutrophils # 5.9 10*3/uL (1.4-7.4); Platelet Count 268 T/CUMM (130-400); Red Blood Count 5.08 MC/CUMM (3.8-5.5); Red Cell Distribution Width 13.4 % (9.3-17.3); White Blood Count 8.1 T/CUMM (4-12)
[2018-07-02 14:47] LABS: PT Patient Result 10.2 SECS
[2018-07-02 15:12] LABS: Albumin 2.9 G/DL (3.4-5.0); Bilirubin,Total 0.5 MG/DL (0.2-1.0); Calcium 8.9 MG/DL (8.5-10.1); Osmolality,Calculated 278.9 MOS/KG (273-304); Potassium 3.9 MMOL/L (3.5-5.1); Total Protein 8.1 G/DL (6.4-8.3)
[2018-07-02] MEDS ORDERED: DEXTROSE 50% 25 GM/50 ML VIAL IV PRN (15:40)
[2018-07-02] MEDS ORDERED: HYDROmorphone 2 MG/1 ML VIAL IV PRN (15:40)
[2018-07-02] MEDS ORDERED: GLUCAGON 1 MG VIAL IM PRN (15:40)
[2018-07-02] MEDS ORDERED: ONDANSETRON 4 MG/2 ML VIAL IV PRN (15:40)
[2018-07-02] MEDS ORDERED: ACETAMINOPHEN 325 MG TABLET PO PRN (15:40)
[2018-07-02] MEDS ORDERED: SODIUM CHLORIDE 0.45% 1,000 ML IV SCH (16:00)
[2018-07-02] MEDS ORDERED: TRIFLURIDINE 1% OPH SOLN 7.5 ML BOTTLE LEFT EYE SCH ×2 (17:00→21:00)
[2018-07-02] MEDS: INSULIN LISPRO 100 UNIT/ML SUBCUT SCH ×3 (18:21→20:43)
[2018-07-02] MEDS: prednisoLONE ACETATE 1% OPH SUSP 5 ML BOTTLE LEFT EYE SCH ×2 (19:13→20:39)
[2018-07-02] MEDS: valACYclovir 500 MG TABLET PO SCH (20:39)
[2018-07-02] MEDS: DOCUSATE SODIUM 100 MG CAPSULE PO SCH (20:39)
[2018-07-02] MEDS: INSULIN GLARGINE 100 UNIT/ML SUBCUT SCH (20:43)
[2018-07-02] MEDS: cloNIDine 0.1 MG TABLET PO PRN (21:08)
[2018-07-02 23:58] LABS: Apearance,Urine CLOUDY (Clear); Bacteria,Urine Moderate /HPF (Few); Bilirubin,Urine Negative (Negative); Blood, Urine Negative (Negative); Glucose,Urine (UA) 150 mg/dL (Negative); Ketones,Urine 5 mg/dL (Negative); Mucus,Urine Occasional /LPF (Occasional); Nitrite,Urine Negative (Negative); Protein,Urine >=500 MG/DL; RBC,Urine 25 /HPF (0-4); Squamous Epithelial Cell,Urine Occasional /HPF (0-10); Urine Color Yellow (Yellow); Urine Specific Gravity 1.026 (1.001-1.035); Urine Urobilinogen < 2.0 EU/DL (0.2-1.0); WBC,Urine 99 /HPF (0-6)
[2018-07-03] MEDS: cloNIDine 0.1 MG TABLET PO PRN (05:11)
[2018-07-03] MEDS: LEVOTHYROXINE 150 MCG TABLET PO SCH (06:39)
[2018-07-03 06:40] LABS: Calcium 8.8 MG/DL (8.5-10.1); Osmolality,Calculated 280.1 MOS/KG (273-304); Potassium 4.3 MMOL/L (3.5-5.1)
[2018-07-03 06:45] LABS: Hematocrit 36.9 VOL% (35.7-47.0); Hemoglobin 12.1 GM/DL (12.0-16.0); Mean Corpuscular HGB Conc 32.8 GM/DL (32-36); Mean Corpuscular Hemoglobin 28 PG (27-34); Mean Corpuscular Volume 84.8 FL (87-102); Mean Platelet Volume 10.5 FL (9.6-12.0); Platelet Count 230 T/CUMM (130-400); Red Blood Count 4.35 MC/CUMM (3.8-5.5); Red Cell Distribution Width 13.5 % (9.3-17.3); White Blood Count 7.5 T/CUMM (4-12)
[2018-07-03 07:46] LABS: Anisocytosis 1+; Band Neutrophils 3 % (0-10); Eosinophils 1 % (0-10); Lymphocytes 25 % (20-55); Platelet Estimate Normal; Segmented Neutrophils 63 % (50-85); Total Cells Counted 100
[2018-07-03] MEDS ORDERED: LOSARTAN/HCTZ 50-12.5 MG TABLET PO SCH (09:00)
[2018-07-03] MEDS: INSULIN LISPRO 100 UNIT/ML SUBCUT SCH ×7 (09:32→20:36)
[2018-07-03] MEDS: PANTOPRAZOLE 40 MG TABLET PO SCH (09:33)
[2018-07-03] MEDS: PRAVASTATIN 20 MG TABLET PO SCH (09:33)
[2018-07-03] MEDS: DOCUSATE SODIUM 100 MG CAPSULE PO SCH ×2 (09:33→20:35)
[2018-07-03] MEDS: amLODIPine 10 MG TABLET PO SCH (09:33)
[2018-07-03] MEDS: ASPIRIN EC 81 MG TABLET PO SCH (09:33)
[2018-07-03] MEDS: valACYclovir 500 MG TABLET PO SCH ×2 (09:33→20:35)
[2018-07-03] MEDS: prednisoLONE ACETATE 1% OPH SUSP 5 ML BOTTLE LEFT EYE SCH ×4 (10:52→20:36)
[2018-07-03] MEDS: ESTROGENS (CONJ) 0.9 MG TABLET PO SCH (10:53)
[2018-07-03] MEDS ORDERED: SODIUM CHLORIDE 0.9% 1,000 ML IV SCH (11:30)
[2018-07-03] MEDS ORDERED: SODIUM CHLORIDE 0.45% 1,000 ML IV SCH (11:30)
[2018-07-03] MEDS: SODIUM CHLORIDE 0.9% 1,000 ML IV SCH (18:16)
[2018-07-03] MEDS: INSULIN GLARGINE 100 UNIT/ML SUBCUT SCH (20:36)
[2018-07-04] MEDS: LEVOTHYROXINE 150 MCG TABLET PO SCH (06:17)
[2018-07-04 07:27] LABS: Calcium 7.7 MG/DL (8.5-10.1); Osmolality,Calculated 273.8 MOS/KG (273-304)
[2018-07-04] MEDS: INSULIN LISPRO 100 UNIT/ML SUBCUT SCH ×7 (08:40→22:04)
[2018-07-04] MEDS: valACYclovir 500 MG TABLET PO SCH ×2 (08:41→22:03)
[2018-07-04] MEDS: PANTOPRAZOLE 40 MG TABLET PO SCH (08:41)
[2018-07-04] MEDS: prednisoLONE ACETATE 1% OPH SUSP 5 ML BOTTLE LEFT EYE SCH ×4 (08:42→22:03)
[2018-07-04] MEDS: PRAVASTATIN 20 MG TABLET PO SCH (08:42)
[2018-07-04] MEDS: ASPIRIN EC 81 MG TABLET PO SCH (08:42)
[2018-07-04] MEDS: DOCUSATE SODIUM 100 MG CAPSULE PO SCH ×2 (08:42→22:04)
[2018-07-04] MEDS: amLODIPine 10 MG TABLET PO SCH (08:42)
[2018-07-04] MEDS: ESTROGENS (CONJ) 0.9 MG TABLET PO SCH (11:15)
[2018-07-04] MEDS: SODIUM CHLORIDE 0.9% 1,000 ML IV SCH ×3 (11:16→22:03)
[2018-07-04] MEDS: INSULIN GLARGINE 100 UNIT/ML SUBCUT SCH (22:04)
[2018-07-05] MEDS: LEVOTHYROXINE 150 MCG TABLET PO SCH (06:01)
[2018-07-05 06:04] LABS: Calcium 7.9 MG/DL (8.5-10.1); Osmolality,Calculated 283.1 MOS/KG (273-304); Potassium 3.7 MMOL/L (3.5-5.1)
[2018-07-05] MEDS: SODIUM CHLORIDE 0.9% 1,000 ML IV SCH ×2 (08:12→16:17)
[2018-07-05] MEDS: DOCUSATE SODIUM 100 MG CAPSULE PO SCH ×2 (09:12→21:26)
[2018-07-05] MEDS: valACYclovir 500 MG TABLET PO SCH ×2 (09:12→21:25)
[2018-07-05] MEDS: ASPIRIN EC 81 MG TABLET PO SCH (09:12)
[2018-07-05] MEDS: prednisoLONE ACETATE 1% OPH SUSP 5 ML BOTTLE LEFT EYE SCH ×4 (09:12→21:33)
[2018-07-05] MEDS: INSULIN LISPRO 100 UNIT/ML SUBCUT SCH ×7 (09:13→21:26)
[2018-07-05] MEDS: amLODIPine 10 MG TABLET PO SCH (09:13)
[2018-07-05] MEDS: PRAVASTATIN 20 MG TABLET PO SCH (09:13)
[2018-07-05] MEDS: PANTOPRAZOLE 40 MG TABLET PO SCH (09:17)
[2018-07-05] MEDS: ESTROGENS (CONJ) 0.9 MG TABLET PO SCH (09:22)
[2018-07-06] MEDS: LEVOTHYROXINE 150 MCG TABLET PO SCH (06:11)
[2018-07-06] MEDS: SODIUM CHLORIDE 0.9% 1,000 ML IV SCH ×2 (07:45→12:35)
[2018-07-06] MEDS: INSULIN LISPRO 100 UNIT/ML SUBCUT SCH ×7 (07:46→21:02)
[2018-07-06] MEDS: ASPIRIN EC 81 MG TABLET PO SCH (09:17)
[2018-07-06] MEDS: ESTROGENS (CONJ) 0.9 MG TABLET PO SCH (09:17)
[2018-07-06] MEDS: DOCUSATE SODIUM 100 MG CAPSULE PO SCH ×2 (09:17→21:04)
[2018-07-06] MEDS: cefTRIAXone 1,000 MG in SYRINGE 1 EACH IV SCH (09:18)
[2018-07-06] MEDS: PRAVASTATIN 20 MG TABLET PO SCH (09:18)
[2018-07-06] MEDS: PANTOPRAZOLE 40 MG TABLET PO SCH (09:18)
[2018-07-06] MEDS: INSULIN GLARGINE 100 UNIT/ML SUBCUT SCH (09:18)
[2018-07-06] MEDS: amLODIPine 10 MG TABLET PO SCH (09:18)
[2018-07-06] MEDS: valACYclovir 500 MG TABLET PO SCH ×2 (09:18→21:03)
[2018-07-06] MEDS: prednisoLONE ACETATE 1% OPH SUSP 5 ML BOTTLE LEFT EYE SCH ×4 (09:18→21:03)
[2018-07-07] MEDS: SODIUM CHLORIDE 0.9% 1,000 ML IV SCH ×3 (01:31→21:52)
[2018-07-07] MEDS: cloNIDine 0.1 MG TABLET PO PRN (04:44)
[2018-07-07] MEDS: LEVOTHYROXINE 150 MCG TABLET PO SCH (06:11)
[2018-07-07] MEDS: amLODIPine 10 MG TABLET PO SCH (09:04)
[2018-07-07] MEDS: ASPIRIN EC 81 MG TABLET PO SCH (09:04)
[2018-07-07] MEDS: PANTOPRAZOLE 40 MG TABLET PO SCH (09:04)
[2018-07-07] MEDS: valACYclovir 500 MG TABLET PO SCH ×2 (09:04→21:48)
[2018-07-07] MEDS: DOCUSATE SODIUM 100 MG CAPSULE PO SCH ×2 (09:05→21:49)
[2018-07-07] MEDS: cefTRIAXone 1,000 MG in SYRINGE 1 EACH IV SCH (09:05)
[2018-07-07] MEDS: PRAVASTATIN 20 MG TABLET PO SCH (09:05)
[2018-07-07] MEDS: INSULIN GLARGINE 100 UNIT/ML SUBCUT SCH (09:06)
[2018-07-07] MEDS: INSULIN LISPRO 100 UNIT/ML SUBCUT SCH ×7 (09:08→21:50)
[2018-07-07] MEDS: prednisoLONE ACETATE 1% OPH SUSP 5 ML BOTTLE LEFT EYE SCH ×4 (09:13→21:49)
[2018-07-07] MEDS: ESTROGENS (CONJ) 0.9 MG TABLET PO SCH (12:32)
[2018-07-08] MEDS: LEVOTHYROXINE 150 MCG TABLET PO SCH (06:08)
[2018-07-08] MEDS: PANTOPRAZOLE 40 MG TABLET PO SCH (08:49)
[2018-07-08] MEDS: ASPIRIN EC 81 MG TABLET PO SCH (08:49)
[2018-07-08] MEDS: amLODIPine 10 MG TABLET PO SCH (08:49)
[2018-07-08] MEDS: valACYclovir 500 MG TABLET PO SCH ×2 (08:49→20:24)
[2018-07-08] MEDS: DOCUSATE SODIUM 100 MG CAPSULE PO SCH ×2 (08:50→20:24)
[2018-07-08] MEDS: TRIFLURIDINE 1% OPH SOLN 7.5 ML BOTTLE LEFT EYE SCH ×4 (08:50→20:25)
[2018-07-08] MEDS: prednisoLONE ACETATE 1% OPH SUSP 5 ML BOTTLE LEFT EYE SCH ×4 (08:50→20:25)
[2018-07-08] MEDS: PRAVASTATIN 20 MG TABLET PO SCH (08:50)
[2018-07-08] MEDS: cefTRIAXone 1,000 MG in SYRINGE 1 EACH IV SCH (08:50)
[2018-07-08] MEDS: INSULIN LISPRO 100 UNIT/ML SUBCUT SCH ×7 (09:00→20:33)
[2018-07-08] MEDS: ESTROGENS (CONJ) 0.9 MG TABLET PO SCH (10:48)
[2018-07-08] MEDS: INSULIN GLARGINE 100 UNIT/ML SUBCUT SCH (10:48)
[2018-07-08] MEDS: SODIUM CHLORIDE 0.9% 1,000 ML IV SCH (18:08)
[2018-07-09] MEDS: LEVOTHYROXINE 150 MCG TABLET PO SCH (07:19)
[2018-07-09] MEDS: INSULIN LISPRO 100 UNIT/ML SUBCUT SCH ×2 (07:30→08:40)
[2018-07-09] MEDS: INSULIN GLARGINE 100 UNIT/ML SUBCUT SCH (08:41)
[2018-07-09] MEDS: ASPIRIN EC 81 MG TABLET PO SCH (08:45)
[2018-07-09] MEDS: PANTOPRAZOLE 40 MG TABLET PO SCH (08:45)
[2018-07-09] MEDS: valACYclovir 500 MG TABLET PO SCH (08:45)
[2018-07-09] MEDS: PRAVASTATIN 20 MG TABLET PO SCH (08:45)
[2018-07-09] MEDS: amLODIPine 10 MG TABLET PO SCH (08:46)
[2018-07-09] MEDS: DOCUSATE SODIUM 100 MG CAPSULE PO SCH (08:46)
[2018-07-09] MEDS: TRIFLURIDINE 1% OPH SOLN 7.5 ML BOTTLE LEFT EYE SCH (08:46)
[2018-07-09] MEDS: prednisoLONE ACETATE 1% OPH SUSP 5 ML BOTTLE LEFT EYE SCH (08:46)
[2018-07-09] MEDS: cefTRIAXone 1,000 MG in SYRINGE 1 EACH IV SCH (08:47)
[2018-07-09] MEDS ORDERED: ESTROGENS (CONJ) 0.3 MG TABLET PO SCH (09:00)
[2018-07-09 13:15] VITALS: BP 144/70
== END 2018-07-09 11:55 | disposition home health service (06) | DRG 637 ==
LOC: N.ED 12:29 → N.EDINP 15:40 → N.2E 17:25
PROVIDERS: ADMIT Family Medicine; ATTEND Family Medicine

== ENCOUNTER 2018-09-14 10:07 | Inpatient (IN) ==
[2018-09-14] MEDS ORDERED: MORPHINE 4 MG/1 ML VIAL IV PRN (10:16)
[2018-09-14] MEDS ORDERED: ONDANSETRON 4 MG/2 ML VIAL IV PRN (10:16)
[2018-09-14] MEDS ORDERED: GLUCAGON 1 MG VIAL IM PRN (10:19)
[2018-09-14] MEDS ORDERED: DEXTROSE 50% 25 GM/50 ML VIAL IV PRN (10:19)
[2018-09-14] MEDS: SODIUM CHLORIDE 0.45% 1,000 ML IV SCH ×2 (13:03→17:55)
[2018-09-14] MEDS: CEFTAROLINE 600 MG in SODIUM CHLORIDE 0.9% 100 ML IV SCH (13:03)
[2018-09-14 13:24] LABS: Basophils % 0.3 % (0.0-0.8); Eosinophils # 0.1 10*3/uL (0.0-0.87); Eosinophils % 0.3 % (0.00-10.9); Hematocrit 31.9 VOL% (35.7-47.0); Hemoglobin 10.7 GM/DL (12.0-16.0); Immature Granulocytes % 0.7 %; Lymphocytes # 2.9 10*3/uL (1.4-4.0); Lymphocytes % 19.9 % (21.3-54.2); Mean Corpuscular HGB Conc 33.5 GM/DL (32-36); Mean Corpuscular Hemoglobin 29 PG (27-34); Mean Corpuscular Volume 87.6 FL (87-102); Mean Platelet Volume 10.4 FL (9.6-12.0); Neutrophils # 10.5 10*3/uL (1.4-7.4); Neutrophils % 71.8 % (38.7-73.9); Platelet Count 322 T/CUMM (130-400); Red Blood Count 3.64 MC/CUMM (3.8-5.5); Red Cell Distribution Width 14.1 % (9.3-17.3); White Blood Count 14.6 T/CUMM (4-12)
[2018-09-14 13:38] LABS: Albumin 2.4 G/DL (3.4-5.0); Bilirubin,Total 0.8 MG/DL (0.2-1.0); Calcium 8.7 MG/DL (8.5-10.1); Osmolality,Calculated 275.8 MOS/KG (273-304); Total Protein 7.7 G/DL (6.4-8.3)
[2018-09-14] MEDS ORDERED: LIDOCAINE 1% 20 ML VIAL ONE (14:11)
[2018-09-14] MEDS: INSULIN LISPRO 100 UNIT/ML SUBCUT SCH ×2 (14:14→16:56)
[2018-09-14] MEDS ORDERED: SCOPOLAMINE 1.5 MG PATCH TRANSDERM ONE (14:54)
[2018-09-14] MEDS ORDERED: DEXTROSE 50% 25 GM/50 ML VIAL IV ONE (14:57)
[2018-09-14] MEDS ORDERED: fentaNYL 100 MCG/2 ML VIAL ONE (16:36)
[2018-09-14] MEDS ORDERED: MIDAZOLAM 2 MG/2 ML VIAL ONE (16:36)
[2018-09-14] MEDS ORDERED: ONDANSETRON 4 MG/2 ML VIAL ONE (16:37)
[2018-09-14] MEDS ORDERED: PROPOFOL 200 MG/20 ML VIAL IV ONE (16:37)
[2018-09-14 18:21] LABS: Troponin I < 0.015 NG/ML (0.00-0.045)
[2018-09-14 22:30] LABS: Troponin I < 0.015 NG/ML (0.00-0.045)
[2018-09-15 00:12] LABS: Troponin I < 0.015 NG/ML (0.00-0.045)
[2018-09-15] MEDS: CEFTAROLINE 600 MG in SODIUM CHLORIDE 0.9% 100 ML IV SCH ×2 (01:54→10:59)
[2018-09-15] MEDS: INSULIN LISPRO 100 UNIT/ML SUBCUT SCH ×5 (01:54→21:48)
[2018-09-15 05:53] LABS: Risk Ratio 3.03; VLDL CHOLESTEROL 27.4 MG/DL
[2018-09-15] MEDS: LEVOTHYROXINE 150 MCG TABLET PO SCH (06:58)
[2018-09-15] MEDS: LOSARTAN/HCTZ 50-12.5 MG TABLET PO SCH (08:27)
[2018-09-15] MEDS: PANTOPRAZOLE 40 MG TABLET PO SCH (08:27)
[2018-09-15] MEDS: INSULIN GLARGINE 100 UNIT/ML SUBCUT SCH (08:27)
[2018-09-15] MEDS: ASPIRIN EC 81 MG TABLET PO SCH (08:28)
[2018-09-15] MEDS: ESTROGENS (CONJ) 0.9 MG TABLET PO SCH (08:30)
[2018-09-15 09:55] LABS: Apearance,Urine CLEAR (Clear); Bilirubin,Urine Negative (Negative); Blood, Urine Moderate mg/dL (Negative); Glucose,Urine (UA) 50 mg/dL (Negative); Ketones,Urine Negative (Negative); Nitrite,Urine Negative (Negative); Protein,Urine 100 MG/DL; RBC,Urine <1 /HPF (0-4); Squamous Epithelial Cell,Urine Occasional /HPF (0-10); Urine Color Yellow (Yellow); Urine Specific Gravity 1.008 (1.001-1.035); WBC,Urine 5 /HPF (0-6)
[2018-09-15] MEDS ORDERED: PRAVASTATIN 20 MG TABLET PO SCH (21:00)
[2018-09-15] MEDS: SODIUM CHLORIDE 0.45% 1,000 ML IV SCH (21:47)
[2018-09-16] MEDS: CEFTAROLINE 600 MG in SODIUM CHLORIDE 0.9% 100 ML IV SCH ×2 (00:19→11:03)
[2018-09-16] MEDS: LEVOTHYROXINE 150 MCG TABLET PO SCH (07:01)
[2018-09-16] MEDS: INSULIN LISPRO 100 UNIT/ML SUBCUT SCH ×4 (07:45→20:17)
[2018-09-16] MEDS: PANTOPRAZOLE 40 MG TABLET PO SCH (08:03)
[2018-09-16] MEDS: ASPIRIN EC 81 MG TABLET PO SCH (08:03)
[2018-09-16] MEDS: LOSARTAN/HCTZ 50-12.5 MG TABLET PO SCH (08:03)
[2018-09-16] MEDS: INSULIN GLARGINE 100 UNIT/ML SUBCUT SCH (08:03)
[2018-09-16] MEDS: ESTROGENS (CONJ) 0.9 MG TABLET PO SCH (08:04)
[2018-09-16] MEDS: SODIUM CHLORIDE 0.45% 1,000 ML IV SCH (20:17)
[2018-09-17] MEDS: CEFTAROLINE 600 MG in SODIUM CHLORIDE 0.9% 100 ML IV SCH (00:07)
[2018-09-17] MEDS: SODIUM CHLORIDE 0.45% 1,000 ML IV SCH (00:08)
[2018-09-17] MEDS: LEVOTHYROXINE 150 MCG TABLET PO SCH (06:19)
[2018-09-17] MEDS: INSULIN LISPRO 100 UNIT/ML SUBCUT SCH ×2 (09:16→12:46)
[2018-09-17] MEDS ORDERED: ceFAZolin 2,000 MG in PREMIX 1 EACH IV SCH (09:30)
[2018-09-17] MEDS: INSULIN GLARGINE 100 UNIT/ML SUBCUT SCH (10:44)
[2018-09-17] MEDS: LOSARTAN/HCTZ 50-12.5 MG TABLET PO SCH (10:46)
[2018-09-17] MEDS: ASPIRIN EC 81 MG TABLET PO SCH (10:46)
[2018-09-17] MEDS: PANTOPRAZOLE 40 MG TABLET PO SCH (10:47)
[2018-09-17 11:17] VITALS: BP 170/70
[2018-09-17] MEDS: ESTROGENS (CONJ) 0.9 MG TABLET PO SCH (12:45)
[2018-09-17] MEDS ORDERED: amLODIPine 2.5 MG TABLET PO SCH (13:30)
== END 2018-09-17 15:10 | disposition home health service (06) | DRG 617 ==
LOC: N.5E 10:57
PROVIDERS: ADMIT Family Medicine; ATTEND Family Medicine

== ENCOUNTER 2018-12-08 14:41 | Inpatient (IN) ==
[2018-12-08] MEDS ORDERED: GLUCAGON 1 MG VIAL IM PRN (14:44)
[2018-12-08] MEDS ORDERED: DEXTROSE 50% 25 GM/50 ML VIAL IV PRN (14:44)
[2018-12-08] MEDS ORDERED: ACETAMINOPHEN 325 MG TABLET PO PRN (14:44)
[2018-12-08] MEDS: INSULIN LISPRO 100 UNIT/ML SUBCUT SCH ×2 (17:33→21:46)
[2018-12-08] MEDS: PIPERACILLIN/TAZOBACTAM 3,375 MG in SODIUM CHLORIDE 0.9% 100 ML IV SCH ×2 (17:33→23:43)
[2018-12-08] MEDS: SODIUM CHLORIDE 0.45% 1,000 ML IV SCH (17:33)
[2018-12-08] MEDS: ONDANSETRON 4 MG/2 ML VIAL IV PRN (17:34)
[2018-12-08 17:52] LABS: Basophils % 0.2 % (0.0-0.8); Hematocrit 29.5 VOL% (35.7-47.0); Hemoglobin 9.9 GM/DL (12.0-16.0); Immature Granulocytes % 1.3 %; Immature Granulocytes Absolute 0.29 #; Lymphocytes # 1.2 10*3/uL (1.4-4.0); Lymphocytes % 5.2 % (21.3-54.2); Mean Corpuscular HGB Conc 33.6 GM/DL (32-36); Mean Corpuscular Hemoglobin 28 PG (27-34); Mean Corpuscular Volume 84.3 FL (87-102); Mean Platelet Volume 9.9 FL (9.6-12.0); Monocytes # 1.2 10*3/uL (0.11-0.8); Monocytes % 5.2 % (1.7-12.7); Neutrophils # 20.2 10*3/uL (1.4-7.4); Neutrophils % 88.1 % (38.7-73.9); Platelet Count 332 T/CUMM (130-400); Red Cell Distribution Width 12.3 % (9.3-17.3); White Blood Count 22.9 T/CUMM (4-12)
[2018-12-08 18:14] LABS: Alanine Aminotransferase < 9 U/L (13-56); Albumin 2.4 G/DL (3.4-5.0); Alkaline Phosphatase 163 U/L (45-117); Aspartate Amino Transferase 9 U/L (0-37); Blood Urea Nitrogen 30 MG/DL (7-18); Calcium 8.6 MG/DL (8.5-10.1); Glucose 321 MG/DL (74-106); Osmolality,Calculated 270.4 MOS/KG (273-304); Potassium 4.1 MMOL/L (3.5-5.1); Sodium 126 MMOL/L (136-145); Total Protein 7.7 G/DL (6.4-8.3)
[2018-12-08 18:22] LABS: Band Neutrophils 1 % (0-10); Lymphocytes 4 % (20-55); Platelet Estimate Normal; Segmented Neutrophils 90 % (50-85); Total Cells Counted 100
[2018-12-08 18:23] LABS: Microcytosis Slight
[2018-12-08] MEDS ORDERED: VANCOMYCIN INJ 750 MG in SODIUM CHLORIDE 0.9% 250 ML IV PRN (18:39)
[2018-12-08] MEDS ORDERED: VANCOMYCIN INJ 1,000 MG in SODIUM CHLORIDE 0.9% 250 ML IV ONE (21:00)
[2018-12-09] MEDS: ONDANSETRON 4 MG/2 ML VIAL IV PRN ×2 (05:55→10:40)
[2018-12-09 06:53] LABS: Calcium 8.6 MG/DL (8.5-10.1); Osmolality,Calculated 273.5 MOS/KG (273-304); Potassium 4.2 MMOL/L (3.5-5.1)
[2018-12-09] MEDS ORDERED: LIDOCAINE 1% 20 ML VIAL ONE (08:10)
[2018-12-09] MEDS ORDERED: PANTOPRAZOLE 40 MG TABLET PO SCH (09:00)
[2018-12-09] MEDS ORDERED: PROPOFOL 200 MG/20 ML VIAL IV ONE (09:48)
[2018-12-09] MEDS ORDERED: SEVOFLURANE 1 UNIT/15 MINUTE INH ONE (09:48)
[2018-12-09] MEDS ORDERED: SCOPOLAMINE 1.5 MG PATCH TRANSDERM ONE (09:48)
[2018-12-09] MEDS ORDERED: fentaNYL 100 MCG/2 ML VIAL ONE (09:48)
[2018-12-09] MEDS ORDERED: ONDANSETRON 4 MG/2 ML VIAL ONE (09:48)
[2018-12-09] MEDS: INSULIN LISPRO 100 UNIT/ML SUBCUT SCH ×4 (09:57→21:12)
[2018-12-09] MEDS ORDERED: GLUCAGON 1 MG VIAL IM PRN (10:40)
[2018-12-09] MEDS ORDERED: DEXTROSE 50% 25 GM/50 ML VIAL IV PRN (10:40)
[2018-12-09] MEDS: PIPERACILLIN/TAZOBACTAM 3,375 MG in SODIUM CHLORIDE 0.9% 100 ML IV SCH ×2 (11:05→23:18)
[2018-12-09] MEDS: SCOPOLAMINE 1.5 MG PATCH TRANSDERM ONE ×2 (12:27→12:28)
[2018-12-09] MEDS: PANTOPRAZOLE 40 MG TABLET PO SCH (17:11)
[2018-12-09] MEDS: amLODIPine 5 MG TABLET PO SCH (21:12)
[2018-12-09] MEDS: SODIUM CHLORIDE 0.45% 1,000 ML IV SCH (21:14)
[2018-12-10 06:06] LABS: Calcium 8.1 MG/DL (8.5-10.1); Osmolality,Calculated 285.1 MOS/KG (273-304); Potassium 4.6 MMOL/L (3.5-5.1)
[2018-12-10] MEDS: LEVOTHYROXINE 150 MCG TABLET PO SCH (06:44)
[2018-12-10] MEDS: INSULIN LISPRO 100 UNIT/ML SUBCUT SCH ×4 (07:30→21:47)
[2018-12-10] MEDS ORDERED: VANCOMYCIN INJ 1,000 MG in SODIUM CHLORIDE 0.9% 250 ML IV ONE (08:00)
[2018-12-10] MEDS ORDERED: ESTROGENS (CONJ) 0.9 MG TABLET PO SCH (09:00)
[2018-12-10] MEDS: ASPIRIN EC 81 MG TABLET PO SCH (10:49)
[2018-12-10] MEDS: amLODIPine 5 MG TABLET PO SCH ×2 (10:49→21:49)
[2018-12-10] MEDS: PANTOPRAZOLE 40 MG TABLET PO SCH ×2 (10:50→16:50)
[2018-12-10] MEDS: ESTROGENS (CONJ) 0.3 MG TABLET PO SCH (12:15)
[2018-12-10] MEDS: PIPERACILLIN/TAZOBACTAM 3,375 MG in SODIUM CHLORIDE 0.9% 100 ML IV SCH ×2 (12:19→23:39)
[2018-12-10] MEDS: SODIUM CHLORIDE 0.45% 1,000 ML IV SCH (16:49)
[2018-12-11 06:35] LABS: Calcium 7.9 MG/DL (8.5-10.1); Osmolality,Calculated 280.8 MOS/KG (273-304); Potassium 4.1 MMOL/L (3.5-5.1)
[2018-12-11] MEDS: LEVOTHYROXINE 150 MCG TABLET PO SCH (06:48)
[2018-12-11] MEDS: INSULIN LISPRO 100 UNIT/ML SUBCUT SCH ×4 (07:30→22:10)
[2018-12-11] MEDS: SODIUM CHLORIDE 0.45% 1,000 ML IV SCH (09:36)
[2018-12-11] MEDS: PANTOPRAZOLE 40 MG TABLET PO SCH ×2 (09:37→18:07)
[2018-12-11] MEDS: ESTROGENS (CONJ) 0.3 MG TABLET PO SCH (09:37)
[2018-12-11] MEDS: amLODIPine 5 MG TABLET PO SCH ×2 (09:37→20:07)
[2018-12-11] MEDS: VANCOMYCIN INJ 1,000 MG in SODIUM CHLORIDE 0.9% 250 ML IV SCH (09:38)
[2018-12-11] MEDS: ASPIRIN EC 81 MG TABLET PO SCH (09:38)
[2018-12-11] MEDS: SODIUM HYPOCHLORITE 0.25% IRRIG 473 ML BOTTLE TOP SCH ×2 (11:10→22:10)
[2018-12-11] MEDS: PIPERACILLIN/TAZOBACTAM 3,375 MG in SODIUM CHLORIDE 0.9% 100 ML IV SCH (11:10)
[2018-12-12] MEDS: PIPERACILLIN/TAZOBACTAM 3,375 MG in SODIUM CHLORIDE 0.9% 100 ML IV SCH ×3 (00:10→23:45)
[2018-12-12] MEDS: SODIUM CHLORIDE 0.45% 1,000 ML IV SCH (00:12)
[2018-12-12] MEDS: LEVOTHYROXINE 150 MCG TABLET PO SCH (07:04)
[2018-12-12] MEDS: PANTOPRAZOLE 40 MG TABLET PO SCH ×2 (07:04→16:23)
[2018-12-12] MEDS: INSULIN LISPRO 100 UNIT/ML SUBCUT SCH ×4 (07:48→20:59)
[2018-12-12] MEDS: amLODIPine 5 MG TABLET PO SCH ×2 (09:22→21:00)
[2018-12-12] MEDS: ASPIRIN EC 81 MG TABLET PO SCH (09:22)
[2018-12-12] MEDS: SODIUM HYPOCHLORITE 0.25% IRRIG 473 ML BOTTLE TOP SCH ×2 (09:22→21:05)
[2018-12-12] MEDS: VANCOMYCIN INJ 1,000 MG in SODIUM CHLORIDE 0.9% 250 ML IV SCH (09:23)
[2018-12-12] MEDS: ESTROGENS (CONJ) 0.3 MG TABLET PO SCH (09:23)
[2018-12-13] MEDS: SODIUM CHLORIDE 0.45% 1,000 ML IV SCH ×2 (03:35→15:30)
[2018-12-13] MEDS: LEVOTHYROXINE 150 MCG TABLET PO SCH (06:21)
[2018-12-13] MEDS: amLODIPine 5 MG TABLET PO SCH ×2 (08:13→21:48)
[2018-12-13] MEDS: ASPIRIN EC 81 MG TABLET PO SCH (08:13)
[2018-12-13] MEDS: ESTROGENS (CONJ) 0.3 MG TABLET PO SCH (08:13)
[2018-12-13] MEDS: PANTOPRAZOLE 40 MG TABLET PO SCH ×2 (08:13→15:31)
[2018-12-13] MEDS: INSULIN LISPRO 100 UNIT/ML SUBCUT SCH ×4 (08:13→21:48)
[2018-12-13] MEDS: VANCOMYCIN INJ 1,000 MG in SODIUM CHLORIDE 0.9% 250 ML IV SCH (08:13)
[2018-12-13] MEDS: SODIUM HYPOCHLORITE 0.25% IRRIG 473 ML BOTTLE TOP SCH ×2 (08:14→21:50)
[2018-12-14] MEDS: SODIUM CHLORIDE 0.45% 1,000 ML IV SCH (05:25)
[2018-12-14] MEDS: LEVOTHYROXINE 150 MCG TABLET PO SCH (06:38)
[2018-12-14] MEDS ORDERED: AMOXICILLIN/CLAV 500 MG TABLET PO SCH (08:30)
[2018-12-14] MEDS: ESTROGENS (CONJ) 0.3 MG TABLET PO SCH (08:45)
[2018-12-14] MEDS: PANTOPRAZOLE 40 MG TABLET PO SCH (08:46)
[2018-12-14] MEDS: ASPIRIN EC 81 MG TABLET PO SCH (08:46)
[2018-12-14] MEDS: amLODIPine 5 MG TABLET PO SCH (08:47)
[2018-12-14] MEDS: INSULIN LISPRO 100 UNIT/ML SUBCUT SCH (08:53)
[2018-12-14] MEDS: SODIUM HYPOCHLORITE 0.25% IRRIG 473 ML BOTTLE TOP SCH (08:57)
[2018-12-14] MEDS ORDERED: LINEZOLID 600 MG TABLET PO SCH (09:00)
[2018-12-14 10:44] VITALS: BP 178/72
== END 2018-12-14 11:46 | disposition home health service (06) | DRG 617 ==
LOC: INTOOBSV 15:21 → N.5E 15:21
PROVIDERS: ADMIT Surgery; ATTEND Surgery

== ENCOUNTER 2019-01-07 05:19 | Inpatient (IN) ==
[2019-01-06 13:42] LABS: Basophils # 0.1 10*3/uL (0.0-0.2); Basophils % 0.6 % (0.0-0.8); Eosinophils # 0.1 10*3/uL (0.0-0.87); Eosinophils % 1.3 % (0.00-10.9); Hematocrit 28.9 VOL% (35.7-47.0); Hemoglobin 9.1 GM/DL (12.0-16.0); Immature Granulocytes % 0.7 %; Immature Granulocytes Absolute 0.07 #; Lymphocytes # 2.5 10*3/uL (1.4-4.0); Lymphocytes % 23.2 % (21.3-54.2); Mean Corpuscular HGB Conc 31.5 GM/DL (32-36); Mean Corpuscular Hemoglobin 28 PG (27-34); Mean Corpuscular Volume 87.6 FL (87-102); Mean Platelet Volume 8.8 FL (9.6-12.0); Monocytes # 0.6 10*3/uL (0.11-0.8); Monocytes % 5.8 % (1.7-12.7); Neutrophils # 7.3 10*3/uL (1.4-7.4); Neutrophils % 68.4 % (38.7-73.9); Platelet Count 337 T/CUMM (130-400); Red Cell Distribution Width 13.9 % (9.3-17.3); White Blood Count 10.6 T/CUMM (4-12)
[2019-01-06 14:04] LABS: Calcium 8.5 MG/DL (8.5-10.1); Potassium 4.4 MMOL/L (3.5-5.1)
[2019-01-07] MEDS ORDERED: DIAZEPAM 5 MG TABLET PO ONE (06:00)
[2019-01-07] MEDS ORDERED: SCOPOLAMINE 1.5 MG PATCH TRANSDERM ONE ×2 (06:00→07:13)
[2019-01-07] MEDS ORDERED: FAMOTIDINE 20 MG TABLET PO ONE (06:00)
[2019-01-07] MEDS ORDERED: DEXTROSE 50% 25 GM/50 ML VIAL IV ONE ×2 (07:12→07:14)
[2019-01-07] MEDS ORDERED: FAMOTIDINE 20 MG TABLET ONE (07:13)
[2019-01-07] MEDS ORDERED: DIAZEPAM 5 MG TABLET ONE (07:13)
[2019-01-07] MEDS ORDERED: LACTATED RINGERS 1,000 ML IV SCH (08:00)
[2019-01-07] MEDS ORDERED: fentaNYL 100 MCG/2 ML VIAL ONE (10:36)
[2019-01-07] MEDS ORDERED: SEVOFLURANE 1 UNIT/15 MINUTE INH ONE (10:36)
[2019-01-07] MEDS ORDERED: PROPOFOL 200 MG/20 ML VIAL IV ONE (10:36)
[2019-01-07] MEDS ORDERED: ONDANSETRON 4 MG/2 ML VIAL ONE (10:36)
[2019-01-07] MEDS: SODIUM CHLORIDE 0.9% 1,000 ML IV SCH (11:20)
[2019-01-07] MEDS ORDERED: PROMETHAZINE 25 MG/1 ML VIAL IM PRN (11:22)
[2019-01-07] MEDS ORDERED: DEXTROSE 50% 25 GM/50 ML VIAL IV PRN (11:22)
[2019-01-07] MEDS ORDERED: HYDROmorphone 2 MG/1 ML VIAL IV PRN (11:22)
[2019-01-07] MEDS ORDERED: GLUCAGON 1 MG VIAL IM PRN (11:22)
[2019-01-07] MEDS: INSULIN REGULAR 100 UNIT/ML SUBCUT SCH ×3 (12:13→20:37)
[2019-01-07] MEDS: LINEZOLID INJ 600 MG in PREMIX 1 EACH IV SCH (12:17)
[2019-01-07] MEDS ORDERED: ZINC OXIDE PASTE 113 GM TUBE TOP PRN (13:44)
[2019-01-07] MEDS: PIPERACILLIN/TAZOBACTAM 3,375 MG in SODIUM CHLORIDE 0.9% 100 ML IV SCH ×2 (14:45→21:41)
[2019-01-07] MEDS ORDERED: KETOROLAC LEFT EYE SCH (15:00)
[2019-01-07] MEDS: SIMVASTATIN 10 MG TABLET PO SCH (20:39)
[2019-01-07] MEDS: PANTOPRAZOLE 40 MG TABLET PO SCH (20:39)
[2019-01-07] MEDS: amLODIPine 5 MG TABLET PO SCH (21:41)
[2019-01-08] MEDS: LINEZOLID INJ 600 MG in PREMIX 1 EACH IV SCH ×2 (00:50→12:05)
[2019-01-08] MEDS: LEVOTHYROXINE 150 MCG TABLET PO SCH (06:01)
[2019-01-08 06:02] LABS: Basophils % 0.4 % (0.0-0.8); Eosinophils # 0.2 10*3/uL (0.0-0.87); Eosinophils % 2.5 % (0.00-10.9); Hematocrit 25.1 VOL% (35.7-47.0); Hemoglobin 7.9 GM/DL (12.0-16.0); Immature Granulocytes % 0.5 %; Immature Granulocytes Absolute 0.04 #; Lymphocytes # 2.6 10*3/uL (1.4-4.0); Lymphocytes % 30.7 % (21.3-54.2); Mean Corpuscular HGB Conc 31.5 GM/DL (32-36); Mean Corpuscular Hemoglobin 28 PG (27-34); Mean Corpuscular Volume 88.1 FL (87-102); Mean Platelet Volume 8.6 FL (9.6-12.0); Monocytes # 0.7 10*3/uL (0.11-0.8); Neutrophils # 4.8 10*3/uL (1.4-7.4); Neutrophils % 57.9 % (38.7-73.9); Platelet Count 291 T/CUMM (130-400); Red Blood Count 2.85 MC/CUMM (3.8-5.5); Red Cell Distribution Width 14.1 % (9.3-17.3); White Blood Count 8.3 T/CUMM (4-12)
[2019-01-08] MEDS: PIPERACILLIN/TAZOBACTAM 3,375 MG in SODIUM CHLORIDE 0.9% 100 ML IV SCH ×3 (06:02→23:41)
[2019-01-08 06:17] LABS: Osmolality,Calculated 280.1 MOS/KG (273-304); Potassium 4.7 MMOL/L (3.5-5.1)
[2019-01-08] MEDS: ASPIRIN EC 81 MG TABLET PO SCH (09:13)
[2019-01-08] MEDS: PANTOPRAZOLE 40 MG TABLET PO SCH ×2 (09:13→20:06)
[2019-01-08] MEDS: ESTROGENS (CONJ) 0.3 MG TABLET PO SCH (09:13)
[2019-01-08] MEDS: amLODIPine 5 MG TABLET PO SCH ×2 (09:13→20:06)
[2019-01-08] MEDS: INSULIN REGULAR 100 UNIT/ML SUBCUT SCH ×4 (09:14→20:05)
[2019-01-08] MEDS: SODIUM CHLORIDE 0.9% 1,000 ML IV SCH ×3 (11:32→12:05)
[2019-01-08] MEDS: SIMVASTATIN 10 MG TABLET PO SCH (20:06)
[2019-01-09] MEDS: LINEZOLID INJ 600 MG in PREMIX 1 EACH IV SCH ×2 (05:01→18:21)
[2019-01-09] MEDS: LEVOTHYROXINE 150 MCG TABLET PO SCH ×2 (05:51→06:05)
[2019-01-09] MEDS: INSULIN REGULAR 100 UNIT/ML SUBCUT SCH ×4 (09:35→20:24)
[2019-01-09] MEDS: PIPERACILLIN/TAZOBACTAM 3,375 MG in SODIUM CHLORIDE 0.9% 100 ML IV SCH ×3 (09:36→22:01)
[2019-01-09] MEDS: ASPIRIN EC 81 MG TABLET PO SCH (09:39)
[2019-01-09] MEDS: SODIUM CHLORIDE 0.9% 1,000 ML IV SCH ×2 (09:39→14:27)
[2019-01-09] MEDS: ESTROGENS (CONJ) 0.3 MG TABLET PO SCH (09:39)
[2019-01-09] MEDS: PANTOPRAZOLE 40 MG TABLET PO SCH ×2 (09:39→20:24)
[2019-01-09] MEDS: amLODIPine 5 MG TABLET PO SCH ×2 (09:39→20:24)
[2019-01-09] MEDS: SIMVASTATIN 10 MG TABLET PO SCH (20:24)
[2019-01-10] MEDS: LINEZOLID INJ 600 MG in PREMIX 1 EACH IV SCH (04:32)
[2019-01-10] MEDS: LEVOTHYROXINE 150 MCG TABLET PO SCH (06:00)
[2019-01-10] MEDS: PIPERACILLIN/TAZOBACTAM 3,375 MG in SODIUM CHLORIDE 0.9% 100 ML IV SCH (06:00)
[2019-01-10] MEDS: INSULIN REGULAR 100 UNIT/ML SUBCUT SCH ×4 (08:04→22:06)
[2019-01-10] MEDS: amLODIPine 5 MG TABLET PO SCH ×2 (08:04→21:59)
[2019-01-10] MEDS: ASPIRIN EC 81 MG TABLET PO SCH (08:04)
[2019-01-10] MEDS: PANTOPRAZOLE 40 MG TABLET PO SCH ×2 (08:04→21:59)
[2019-01-10] MEDS: ESTROGENS (CONJ) 0.3 MG TABLET PO SCH (08:04)
[2019-01-10] MEDS: ONDANSETRON 4 MG/2 ML VIAL IV PRN ×3 (10:41→22:39)
[2019-01-10] MEDS: SODIUM HYPOCHLORITE 0.25% IRRIG 473 ML BOTTLE TOP SCH (10:41)
[2019-01-10] MEDS: CIPROFLOXACIN 500 MG TABLET PO SCH ×2 (10:41→21:59)
[2019-01-10] MEDS: SIMVASTATIN 10 MG TABLET PO SCH (21:59)
[2019-01-11] MEDS: LEVOTHYROXINE 150 MCG TABLET PO SCH (06:06)
[2019-01-11] MEDS: INSULIN REGULAR 100 UNIT/ML SUBCUT SCH ×4 (08:36→21:02)
[2019-01-11] MEDS: CIPROFLOXACIN 500 MG TABLET PO SCH ×2 (08:47→21:00)
[2019-01-11] MEDS: ASPIRIN EC 81 MG TABLET PO SCH (08:47)
[2019-01-11] MEDS: ESTROGENS (CONJ) 0.3 MG TABLET PO SCH (08:47)
[2019-01-11] MEDS: amLODIPine 5 MG TABLET PO SCH ×2 (08:48→21:00)
[2019-01-11] MEDS: PANTOPRAZOLE 40 MG TABLET PO SCH ×2 (08:48→21:00)
[2019-01-11] MEDS: SODIUM HYPOCHLORITE 0.25% IRRIG 473 ML BOTTLE TOP SCH (08:50)
[2019-01-11] MEDS: ONDANSETRON 4 MG/2 ML VIAL IV PRN (10:58)
[2019-01-11] MEDS: SIMVASTATIN 10 MG TABLET PO SCH (21:00)
[2019-01-12] MEDS: LEVOTHYROXINE 150 MCG TABLET PO SCH (06:14)
[2019-01-12] MEDS: PANTOPRAZOLE 40 MG TABLET PO SCH (08:52)
[2019-01-12] MEDS: amLODIPine 5 MG TABLET PO SCH (08:52)
[2019-01-12] MEDS: ASPIRIN EC 81 MG TABLET PO SCH (08:52)
[2019-01-12] MEDS: ESTROGENS (CONJ) 0.3 MG TABLET PO SCH (08:52)
[2019-01-12] MEDS: CIPROFLOXACIN 500 MG TABLET PO SCH (08:52)
[2019-01-12] MEDS: INSULIN REGULAR 100 UNIT/ML SUBCUT SCH (08:53)
[2019-01-12] MEDS: SODIUM HYPOCHLORITE 0.25% IRRIG 473 ML BOTTLE TOP SCH (08:53)
[2019-01-12 11:30] VITALS: BP 174/71
== END 2019-01-12 11:43 | disposition home health service (06) | DRG 617 ==
LOC: N.OR 05:19 → N.SDSINP 05:20 → N.5E 11:22
PROVIDERS: ADMIT Surgery; ATTEND Surgery

== ENCOUNTER 2019-08-05 11:34 | Inpatient (IN) ==
[2019-08-05 12:16] LABS: Basophils # 0.1 10*3/uL (0.0-0.2); Basophils % 0.6 % (0.0-0.8); Eosinophils # 0.1 10*3/uL (0.0-0.87); Eosinophils % 0.9 % (0.00-10.9); Hemoglobin 11.7 GM/DL (12.0-16.0); Immature Granulocytes % 0.6 %; Immature Granulocytes Absolute 0.07 #; Lymphocytes # 2.5 10*3/uL (1.4-4.0); Lymphocytes % 22.8 % (21.3-54.2); Mean Corpuscular HGB Conc 33.4 GM/DL (32-36); Mean Corpuscular Volume 83.9 FL (87-102); Mean Platelet Volume 9.8 FL (9.6-12.0); Monocytes % 5.7 % (1.7-12.7); Neutrophils % 69.4 % (38.7-73.9); Platelet Count 299 T/CUMM (130-400); Red Blood Count 4.17 MC/CUMM (3.8-5.5); Red Cell Distribution Width 12.8 % (9.3-17.3)
[2019-08-05 12:29] LABS: INR 0.9; PT Patient Result 9.5 SECS (9.6-12.2); Partial Thromboplastin Time 27.9 SECS (20.8-36.0)
[2019-08-05 12:46] LABS: Alanine Aminotransferase 14 U/L (13-56); Albumin 2.8 G/DL (3.4-5.0); Alkaline Phosphatase 141 U/L (45-117); Aspartate Amino Transferase 10 U/L (0-37); Bilirubin,Total < 0.39 MG/DL (0.2-1.0); Blood Urea Nitrogen 33 MG/DL (7-18); Calcium 8.5 MG/DL (8.5-10.1); Estimated Glom Filtration Rate 21 ML/MIN; Glucose 412 MG/DL (74-106); Osmolality,Calculated 289.4 MOS/KG (273-304)
[2019-08-05] MEDS ORDERED: ONDANSETRON 4 MG/2 ML VIAL IV PRN (13:15)
[2019-08-05] MEDS ORDERED: ACETAMINOPHEN 325 MG TABLET PO PRN (13:15)
[2019-08-05] MEDS: SODIUM CHLORIDE 0.9% 1,000 ML IV SCH (16:32)
[2019-08-05] MEDS: INSULIN LISPRO 100 UNIT/ML SUBCUT SCH ×2 (18:05→20:50)
[2019-08-05] MEDS ORDERED: DEXTROSE 50% 25 GM/50 ML VIAL IV PRN (18:20)
[2019-08-05] MEDS ORDERED: GLUCAGON 1 MG VIAL IM PRN (18:20)
[2019-08-05] MEDS: INSULIN GLARGINE 100 UNIT/ML SUBCUT SCH (18:50)
[2019-08-05] MEDS: SIMVASTATIN 10 MG TABLET PO SCH (20:50)
[2019-08-05] MEDS: PANTOPRAZOLE 40 MG TABLET PO SCH (20:50)
[2019-08-05] MEDS: DOCUSATE SODIUM 100 MG CAPSULE PO SCH (20:50)
[2019-08-05] MEDS: amLODIPine 5 MG TABLET PO SCH (20:50)
[2019-08-06 05:53] LABS: Folate 12.7 NG/ML (5.4-24.0)
[2019-08-06] MEDS: LEVOTHYROXINE 150 MCG TABLET PO SCH (08:51)
[2019-08-06] MEDS: PANTOPRAZOLE 40 MG TABLET PO SCH ×3 (08:52→20:45)
[2019-08-06] MEDS: LOSARTAN/HCTZ 50-12.5 MG TABLET PO SCH (08:53)
[2019-08-06] MEDS: ASPIRIN EC 81 MG TABLET PO SCH (08:53)
[2019-08-06] MEDS: amLODIPine 5 MG TABLET PO SCH ×2 (08:54→20:45)
[2019-08-06] MEDS: INSULIN LISPRO 100 UNIT/ML SUBCUT SCH ×4 (08:54→21:00)
[2019-08-06] MEDS: ESTROGENS (CONJ) 0.45 MG TABLET PO SCH (08:55)
[2019-08-06] MEDS: DOCUSATE SODIUM 100 MG CAPSULE PO SCH ×3 (08:59→20:52)
[2019-08-06] MEDS: INSULIN GLARGINE 100 UNIT/ML SUBCUT SCH ×2 (09:00→18:12)
[2019-08-06] MEDS ORDERED: DIAZEPAM 5 MG TABLET PO ONE (10:54)
[2019-08-06] MEDS: CHOLECALCIFEROL 5,000 UNIT TABLET PO SCH (12:46)
[2019-08-06] MEDS: SODIUM CHLORIDE 0.9% 1,000 ML IV SCH (12:47)
[2019-08-06 15:56] LABS: Apearance,Urine Slightly Hazy (Clear); Bacteria,Urine Occasional /HPF (Few); Bilirubin,Urine Negative (Negative); Blood, Urine Small mg/dL (Negative); Glucose,Urine (UA) 50 mg/dL (Negative); Ketones,Urine Negative (Negative); Nitrite,Urine Negative (Negative); Protein,Urine 100 MG/DL; RBC,Urine 6 /HPF (0-4); Squamous Epithelial Cell,Urine Occasional /HPF (0-10); Urine Color Yellow (Yellow); Urine Urobilinogen < 2.0 EU/DL (0.2-1.0); WBC,Urine 202 /HPF (0-6)
[2019-08-06] MEDS: SIMVASTATIN 10 MG TABLET PO SCH (20:45)
[2019-08-07 05:35] LABS: Hematocrit 32.9 VOL% (35.7-47.0); Hemoglobin 10.5 GM/DL (12.0-16.0); Mean Corpuscular HGB Conc 31.9 GM/DL (32-36); Mean Corpuscular Volume 85.7 FL (87-102); Mean Platelet Volume 9.4 FL (9.6-12.0); Platelet Count 271 T/CUMM (130-400); Red Blood Count 3.84 MC/CUMM (3.8-5.5); Red Cell Distribution Width 12.9 % (9.3-17.3); White Blood Count 9.4 T/CUMM (4-12)
[2019-08-07 05:36] LABS: Basophils # 0.1 10*3/uL (0.0-0.2); Basophils % 0.7 % (0.0-0.8); Eosinophils # 0.3 10*3/uL (0.0-0.87); Eosinophils % 3.1 % (0.00-10.9); Immature Granulocytes % 0.5 %; Immature Granulocytes Absolute 0.05 #; Lymphocytes # 2.8 10*3/uL (1.4-4.0); Lymphocytes % 30.3 % (21.3-54.2); Monocytes % 6.7 % (1.7-12.7); Neutrophils % 58.7 % (38.7-73.9)
[2019-08-07 05:51] LABS: Calcium 8.6 MG/DL (8.5-10.1); Osmolality,Calculated 293.7 MOS/KG (273-304)
[2019-08-07 05:56] LABS: Albumin 2.3 G/DL (3.4-5.0); Bilirubin,Total 0.6 MG/DL (0.2-1.0); Calcium 8.3 MG/DL (8.5-10.1); Osmolality,Calculated 288.1 MOS/KG (273-304); Total Protein 6.4 G/DL (6.4-8.3)
[2019-08-07] MEDS: LEVOTHYROXINE 150 MCG TABLET PO SCH (06:08)
[2019-08-07] MEDS: ASPIRIN EC 81 MG TABLET PO SCH (08:43)
[2019-08-07] MEDS: amLODIPine 5 MG TABLET PO SCH ×2 (08:44→21:19)
[2019-08-07] MEDS: LOSARTAN/HCTZ 50-12.5 MG TABLET PO SCH (08:44)
[2019-08-07] MEDS: CLOPIDOGREL 75 MG TABLET PO SCH (08:44)
[2019-08-07] MEDS: DOCUSATE SODIUM 100 MG CAPSULE PO SCH ×3 (08:45→21:22)
[2019-08-07] MEDS: INSULIN LISPRO 100 UNIT/ML SUBCUT SCH ×4 (08:45→21:18)
[2019-08-07] MEDS: PANTOPRAZOLE 40 MG TABLET PO SCH ×3 (08:46→22:41)
[2019-08-07] MEDS: ESTROGENS (CONJ) 0.45 MG TABLET PO SCH (08:47)
[2019-08-07] MEDS: INSULIN GLARGINE 100 UNIT/ML SUBCUT SCH ×2 (08:48→18:09)
[2019-08-07] MEDS: SODIUM CHLORIDE 0.9% 1,000 ML IV SCH (10:11)
[2019-08-07] MEDS: CHOLECALCIFEROL 5,000 UNIT TABLET PO SCH (10:12)
[2019-08-07] MEDS: cefTRIAXone 1,000 MG in SYRINGE 1 EACH IV SCH (13:59)
[2019-08-07] MEDS: SIMVASTATIN 10 MG TABLET PO SCH (21:19)
[2019-08-08] MEDS: LEVOTHYROXINE 150 MCG TABLET PO SCH (06:00)
[2019-08-08] MEDS: SODIUM CHLORIDE 0.9% 1,000 ML IV SCH (06:00)
[2019-08-08] MEDS: INSULIN LISPRO 100 UNIT/ML SUBCUT SCH ×4 (08:44→20:51)
[2019-08-08] MEDS: amLODIPine 5 MG TABLET PO SCH ×2 (08:58→20:38)
[2019-08-08] MEDS: PANTOPRAZOLE 40 MG TABLET PO SCH ×2 (08:58→20:38)
[2019-08-08] MEDS: CLOPIDOGREL 75 MG TABLET PO SCH (08:59)
[2019-08-08] MEDS: ASPIRIN EC 81 MG TABLET PO SCH (08:59)
[2019-08-08] MEDS: LOSARTAN/HCTZ 50-12.5 MG TABLET PO SCH (08:59)
[2019-08-08] MEDS: CHOLECALCIFEROL 5,000 UNIT TABLET PO SCH (09:00)
[2019-08-08] MEDS: ESTROGENS (CONJ) 0.45 MG TABLET PO SCH (09:01)
[2019-08-08] MEDS: INSULIN GLARGINE 100 UNIT/ML SUBCUT SCH ×2 (09:09→20:39)
[2019-08-08] MEDS: DOCUSATE SODIUM 100 MG CAPSULE PO SCH ×2 (09:12→20:39)
[2019-08-08 09:33] LABS: Risk Ratio 3.2; VLDL CHOLESTEROL 37.4 MG/DL
[2019-08-08] MEDS: cefTRIAXone 1,000 MG in SYRINGE 1 EACH IV SCH (15:50)
[2019-08-08] MEDS: SIMVASTATIN 10 MG TABLET PO SCH (20:38)
[2019-08-09] MEDS: SODIUM CHLORIDE 0.9% 1,000 ML IV SCH ×2 (01:35→23:22)
[2019-08-09] MEDS: LEVOTHYROXINE 150 MCG TABLET PO SCH (06:00)
[2019-08-09] MEDS: CHOLECALCIFEROL 5,000 UNIT TABLET PO SCH (08:15)
[2019-08-09] MEDS: ASPIRIN EC 81 MG TABLET PO SCH (08:15)
[2019-08-09] MEDS: ESTROGENS (CONJ) 0.45 MG TABLET PO SCH (08:15)
[2019-08-09] MEDS: CLOPIDOGREL 75 MG TABLET PO SCH (08:16)
[2019-08-09] MEDS: PANTOPRAZOLE 40 MG TABLET PO SCH ×2 (08:16→21:57)
[2019-08-09] MEDS: LOSARTAN/HCTZ 50-12.5 MG TABLET PO SCH (08:16)
[2019-08-09] MEDS: amLODIPine 5 MG TABLET PO SCH ×2 (08:17→21:57)
[2019-08-09] MEDS: INSULIN LISPRO 100 UNIT/ML SUBCUT SCH ×4 (08:17→21:58)
[2019-08-09] MEDS: INSULIN GLARGINE 100 UNIT/ML SUBCUT SCH ×2 (08:17→21:58)
[2019-08-09] MEDS: DOCUSATE SODIUM 100 MG CAPSULE PO SCH ×2 (08:17→21:58)
[2019-08-09] MEDS: cefTRIAXone 1,000 MG in SYRINGE 1 EACH IV SCH (13:25)
[2019-08-09] MEDS: SIMVASTATIN 10 MG TABLET PO SCH (21:58)
[2019-08-10] MEDS: SODIUM CHLORIDE 0.9% 1,000 ML IV SCH (02:37)
[2019-08-10] MEDS: LEVOTHYROXINE 150 MCG TABLET PO SCH (06:36)
[2019-08-10] MEDS: INSULIN LISPRO 100 UNIT/ML SUBCUT SCH (07:31)
[2019-08-10] MEDS: LOSARTAN/HCTZ 50-12.5 MG TABLET PO SCH (08:35)
[2019-08-10] MEDS: DOCUSATE SODIUM 100 MG CAPSULE PO SCH (08:35)
[2019-08-10] MEDS: CLOPIDOGREL 75 MG TABLET PO SCH (08:35)
[2019-08-10] MEDS: ESTROGENS (CONJ) 0.45 MG TABLET PO SCH (08:35)
[2019-08-10] MEDS: ASPIRIN EC 81 MG TABLET PO SCH (08:35)
[2019-08-10] MEDS: CHOLECALCIFEROL 5,000 UNIT TABLET PO SCH (08:36)
[2019-08-10] MEDS: amLODIPine 5 MG TABLET PO SCH (08:36)
[2019-08-10] MEDS: INSULIN GLARGINE 100 UNIT/ML SUBCUT SCH (08:36)
[2019-08-10] MEDS: PANTOPRAZOLE 40 MG TABLET PO SCH (08:36)
[2019-08-10 09:11] VITALS: BP 162/58
== END 2019-08-10 10:40 | disposition home health service (06) | DRG 92 ==
LOC: N.ED 11:34 → N.EDINP 13:15 → N.5E 14:11
PROVIDERS: ADMIT Family Medicine; ATTEND Family Medicine

== ENCOUNTER 2020-03-16 10:39 | Inpatient (IN) ==
[2020-03-16 11:10] LABS: Basophils # 0.1 10*3/uL (0.0-0.2); Basophils % 0.3 % (0.0-0.8); Hemoglobin 9.4 GM/DL (12.0-16.0); Immature Granulocytes % 0.5 %; Immature Granulocytes Absolute 0.09 #; Lymphocytes % 5.9 % (21.3-54.2); Mean Corpuscular HGB Conc 31.3 GM/DL (32-36); Mean Corpuscular Volume 86.7 FL (87-102); Mean Platelet Volume 10.4 FL (9.6-12.0); Monocytes % 5.6 % (1.7-12.7); Neutrophils % 87.7 % (38.7-73.9); Platelet Count 248 T/CUMM (130-400); Red Blood Count 3.46 MC/CUMM (3.8-5.5); Red Cell Distribution Width 14.3 % (9.3-17.3); White Blood Count 16.4 T/CUMM (4-12)
[2020-03-16] MEDS ORDERED: SODIUM CHLORIDE 0.9% 1,000 ML IV STA ×2 (11:37→13:44)
[2020-03-16 11:45] LABS: Albumin 2.4 G/DL (3.4-5.0); Calcium 8.6 MG/DL (8.5-10.1); Osmolality,Calculated 320.9 MOS/KG (273-304); Total Protein 7.6 G/DL (6.4-8.3)
[2020-03-16 11:59] LABS: Apearance,Urine CLOUDY (Clear); Bacteria,Urine Many /HPF (Few); Bilirubin,Urine Negative (Negative); Blood, Urine Moderate mg/dL (Negative); Glucose,Urine (UA) >=500 mg/dL (Negative); Ketones,Urine 5 mg/dL (Negative); Nitrite,Urine Negative (Negative); Protein,Urine 30 MG/DL; RBC,Urine 4 /HPF (0-4); Urine Color Yellow (Yellow); Urine Specific Gravity 1.017 (1.001-1.035); Urine Urobilinogen < 2.0 EU/DL (0.2-1.0); WBC,Urine 117 /HPF (0-6)
[2020-03-16] MEDS ORDERED: INSULIN REGULAR 100 UNIT/ML IV STA (12:05)
[2020-03-16] MEDS ORDERED: INSULIN REGULAR 100 UNIT/ML ONE (12:07)
[2020-03-16 12:08] LABS: Lymphocytes 6 % (20-55); Segmented Neutrophils 89 % (50-85); Total Cells Counted 100
[2020-03-16 12:12] LABS: Burr Cells Few; Platelet Estimate Normal
[2020-03-16 12:57] LABS: INR 1.1; PT Patient Result 11.5 SECS (9.8-11.9)
[2020-03-16 13:04] LABS: Ferritin 460.6 ng/ml (8-252)
[2020-03-16] MEDS ORDERED: cefTRIAXone 2,000 MG in SODIUM CHLORIDE 0.9% 100 ML IV ONE (13:18)
[2020-03-16] MEDS ORDERED: cefTRIAXone 1,000 MG VIAL ONE (13:24)
[2020-03-16] MEDS ORDERED: cefTRIAXone 2,000 MG in SYRINGE 1 EACH IV ONE (13:30)
[2020-03-16] MEDS ORDERED: ALUMINUM/MAGNES/SIMETH MAX STR 30 ML UDCUP PO PRN (13:37)
[2020-03-16] MEDS ORDERED: ONDANSETRON 4 MG/2 ML VIAL IV STA (13:38)
[2020-03-16] MEDS ORDERED: INSULIN LISPRO 100 UNIT/ML SUBCUT STA (13:43)
[2020-03-16] MEDS ORDERED: GLUCAGON 1 MG VIAL IM PRN (13:46)
[2020-03-16] MEDS ORDERED: DEXTROSE 50% 25 GM/50 ML VIAL IV PRN (13:46)
[2020-03-16] MEDS ORDERED: ONDANSETRON 4 MG/2 ML VIAL IV PRN (13:46)
[2020-03-16] MEDS ORDERED: ACETAMINOPHEN 325 MG TABLET PO PRN (13:46)
[2020-03-16] MEDS ORDERED: DEXTROSE 10% 250 ML BAG IV PRN (14:22)
[2020-03-16] MEDS: SODIUM CHLORIDE 0.9% 1,000 ML IV SCH (20:11)
[2020-03-16] MEDS: SIMVASTATIN 10 MG TABLET PO SCH (20:38)
[2020-03-16] MEDS: DOCUSATE SODIUM 100 MG CAPSULE PO SCH (20:38)
[2020-03-16] MEDS: amLODIPine 5 MG TABLET PO SCH (20:38)
[2020-03-16] MEDS: INSULIN REGULAR 100 UNIT/ML SUBCUT SCH (23:48)
[2020-03-17] MEDS: SODIUM CHLORIDE 0.9% 1,000 ML IV SCH ×3 (04:47→21:04)
[2020-03-17] MEDS: ACETAMINOPHEN 650 MG SUPP RECTAL PRN ×2 (05:16→16:40)
[2020-03-17] MEDS: INSULIN REGULAR 100 UNIT/ML SUBCUT SCH ×5 (05:16→22:13)
[2020-03-17] MEDS ORDERED: AZITHROMYCIN INJ 500 MG in SODIUM CHLORIDE 0.9% 250 ML IV SCH (05:30)
[2020-03-17 06:37] LABS: Basophils % 0.3 % (0.0-0.8); Eosinophils % 0.3 % (0.00-10.9); Hemoglobin 9.4 GM/DL (12.0-16.0); Immature Granulocytes % 1.1 %; Immature Granulocytes Absolute 0.04 #; Lymphocytes # 0.2 10*3/uL (1.4-4.0); Lymphocytes % 6.2 % (21.3-54.2); Mean Corpuscular HGB Conc 32.4 GM/DL (32-36); Mean Corpuscular Volume 83.1 FL (87-102); Monocytes % 1.1 % (1.7-12.7); Platelet Count 185 T/CUMM (130-400); Red Blood Count 3.49 MC/CUMM (3.8-5.5); Red Cell Distribution Width 14.2 % (9.3-17.3); White Blood Count 3.6 T/CUMM (4-12)
[2020-03-17 07:03] LABS: Calcium 8.2 MG/DL (8.5-10.1); Osmolality,Calculated 311.4 MOS/KG (273-304)
[2020-03-17 07:22] LABS: Band Neutrophils 4 % (0-10); Eosinophils 2 % (0-10); Hypochromasia 1+; Lymphocytes 5 % (20-55); Microcytosis Slight; Polychromasia Slight; Segmented Neutrophils 88 % (50-85); Total Cells Counted 100
[2020-03-17] MEDS ORDERED: AZITHROMYCIN 250 MG TABLET PO SCH (09:00)
[2020-03-17] MEDS ORDERED: ESTROGENS (CONJ) 0.9 MG TABLET PO SCH (09:00)
[2020-03-17] MEDS: LEVOTHYROXINE 150 MCG TABLET PO SCH (09:10)
[2020-03-17] MEDS: PANTOPRAZOLE 40 MG TABLET PO SCH (09:10)
[2020-03-17] MEDS: DOCUSATE SODIUM 100 MG CAPSULE PO SCH ×2 (09:10→21:56)
[2020-03-17] MEDS: cefTRIAXone 1,000 MG in SYRINGE 1 EACH IV SCH (09:10)
[2020-03-17] MEDS: CHOLECALCIFEROL 5,000 UNIT TABLET PO SCH (09:10)
[2020-03-17] MEDS: ASPIRIN EC 81 MG TABLET PO SCH (09:10)
[2020-03-17] MEDS: amLODIPine 5 MG TABLET PO SCH ×2 (09:10→21:56)
[2020-03-17] MEDS: CLOPIDOGREL 75 MG TABLET PO SCH (09:10)
[2020-03-17] MEDS: AZITHROMYCIN INJ 500 MG in SODIUM CHLORIDE 0.9% 250 ML IV SCH (11:10)
[2020-03-17] MEDS ORDERED: ACETAMINOPHEN 650 MG SUPP RECTAL PRN (18:23)
[2020-03-17] MEDS: SIMVASTATIN 10 MG TABLET PO SCH (21:56)
[2020-03-18] MEDS: INSULIN REGULAR 100 UNIT/ML SUBCUT SCH ×6 (04:52→21:20)
[2020-03-18] MEDS: ACETAMINOPHEN 500 MG TABLET PO PRN (04:55)
[2020-03-18] MEDS ORDERED: DEXTROSE 50% 25 GM/50 ML VIAL IV PRN (09:03)
[2020-03-18] MEDS ORDERED: GLUCAGON 1 MG VIAL IM PRN (09:03)
[2020-03-18] MEDS: cefTRIAXone 1,000 MG in SYRINGE 1 EACH IV SCH (09:05)
[2020-03-18] MEDS: CLOPIDOGREL 75 MG TABLET PO SCH (09:05)
[2020-03-18] MEDS: amLODIPine 5 MG TABLET PO SCH ×2 (09:05→21:05)
[2020-03-18] MEDS: ASPIRIN EC 81 MG TABLET PO SCH (09:05)
[2020-03-18] MEDS: SODIUM CHLORIDE 0.9% 1,000 ML IV SCH ×2 (09:05→15:48)
[2020-03-18] MEDS: CHOLECALCIFEROL 5,000 UNIT TABLET PO SCH (09:05)
[2020-03-18] MEDS: PANTOPRAZOLE 40 MG TABLET PO SCH (09:05)
[2020-03-18] MEDS: DOCUSATE SODIUM 100 MG CAPSULE PO SCH ×2 (09:05→21:05)
[2020-03-18] MEDS: LEVOTHYROXINE 150 MCG TABLET PO SCH (09:05)
[2020-03-18] MEDS: AZITHROMYCIN INJ 500 MG in SODIUM CHLORIDE 0.9% 250 ML IV SCH (09:10)
[2020-03-18 12:02] LABS: Basophils % 0.3 % (0.0-0.8); Eosinophils # 0.1 10*3/uL (0.0-0.87); Eosinophils % 0.5 % (0.00-10.9); Hematocrit 26.6 VOL% (35.7-47.0); Hemoglobin 8.4 GM/DL (12.0-16.0); Immature Granulocytes % 1.5 %; Immature Granulocytes Absolute 0.18 #; Lymphocytes # 1.6 10*3/uL (1.4-4.0); Lymphocytes % 12.8 % (21.3-54.2); Mean Corpuscular HGB Conc 31.6 GM/DL (32-36); Mean Corpuscular Volume 86.4 FL (87-102); Mean Platelet Volume 10.3 FL (9.6-12.0); Monocytes % 6.7 % (1.7-12.7); Neutrophils % 78.2 % (38.7-73.9); Platelet Count 108 T/CUMM (130-400); Red Blood Count 3.08 MC/CUMM (3.8-5.5); Red Cell Distribution Width 15.1 % (9.3-17.3); White Blood Count 12.2 T/CUMM (4-12)
[2020-03-18 12:20] LABS: Calcium 7.8 MG/DL (8.5-10.1); Osmolality,Calculated 299.5 MOS/KG (273-304)
[2020-03-18 12:38] LABS: Band Neutrophils 9 % (0-10); Lymphocytes 13 % (20-55); Microcytosis Slight; Segmented Neutrophils 75 % (50-85); Total Cells Counted 100
[2020-03-18 12:39] LABS: Hypochromasia 1+; Polychromasia Slight
[2020-03-18 12:40] LABS: Platelet Estimate Decreased
[2020-03-18] MEDS: PIPERACILLIN/TAZOBACTAM 3,375 MG in SODIUM CHLORIDE 0.9% 100 ML IV SCH ×2 (15:10→23:49)
[2020-03-18] MEDS: SIMVASTATIN 10 MG TABLET PO SCH (21:04)
[2020-03-19] MEDS: ACETAMINOPHEN 500 MG TABLET PO PRN ×2 (00:06→16:56)
[2020-03-19] MEDS: INSULIN REGULAR 100 UNIT/ML SUBCUT SCH ×6 (02:43→22:13)
[2020-03-19] MEDS: SODIUM CHLORIDE 0.9% 1,000 ML IV SCH (05:22)
[2020-03-19 06:07] LABS: Basophils % 0.3 % (0.0-0.8); Eosinophils # 0.2 10*3/uL (0.0-0.87); Eosinophils % 1.3 % (0.00-10.9); Hematocrit 28.8 VOL% (35.7-47.0); Hemoglobin 9.2 GM/DL (12.0-16.0); Immature Granulocytes Absolute 0.47 #; Lymphocytes # 1.5 10*3/uL (1.4-4.0); Lymphocytes % 12.7 % (21.3-54.2); Mean Corpuscular HGB Conc 31.9 GM/DL (32-36); Mean Corpuscular Volume 85.7 FL (87-102); Mean Platelet Volume 11.1 FL (9.6-12.0); Monocytes % 6.3 % (1.7-12.7); Neutrophils % 75.4 % (38.7-73.9); Platelet Count 104 T/CUMM (130-400); Red Blood Count 3.36 MC/CUMM (3.8-5.5); Red Cell Distribution Width 15.5 % (9.3-17.3); White Blood Count 11.7 T/CUMM (4-12)
[2020-03-19 06:21] LABS: Calcium 7.8 MG/DL (8.5-10.1); Osmolality,Calculated 293.8 MOS/KG (273-304)
[2020-03-19 06:28] LABS: Band Neutrophils 1 % (0-10); Eosinophils 2 % (0-10); Lymphocytes 10 % (20-55); Nucleated Red Blood Cells 2 (0-5); Platelet Estimate Decreased; Segmented Neutrophils 84 % (50-85); Total Cells Counted 100
[2020-03-19 06:29] LABS: Hypochromasia 1+; Microcytosis Slight
[2020-03-19] MEDS: LEVOTHYROXINE 150 MCG TABLET PO SCH (09:01)
[2020-03-19] MEDS: cefTRIAXone 1,000 MG in SYRINGE 1 EACH IV SCH (09:01)
[2020-03-19] MEDS: PANTOPRAZOLE 40 MG TABLET PO SCH (09:01)
[2020-03-19] MEDS: CLOPIDOGREL 75 MG TABLET PO SCH (09:01)
[2020-03-19] MEDS: ASPIRIN EC 81 MG TABLET PO SCH (09:01)
[2020-03-19] MEDS: amLODIPine 5 MG TABLET PO SCH ×2 (09:02→21:45)
[2020-03-19] MEDS: SODIUM CHLORIDE 0.45% 1,000 ML IV SCH (09:02)
[2020-03-19] MEDS: CHOLECALCIFEROL 5,000 UNIT TABLET PO SCH (09:02)
[2020-03-19] MEDS: DOCUSATE SODIUM 100 MG CAPSULE PO SCH ×2 (09:02→21:45)
[2020-03-19] MEDS ORDERED: cefTRIAXone 1,000 MG in SYRINGE 1 EACH IV ONE (12:00)
[2020-03-19] MEDS: SIMVASTATIN 10 MG TABLET PO SCH (21:46)
[2020-03-20] MEDS: INSULIN REGULAR 100 UNIT/ML SUBCUT SCH ×6 (01:05→22:24)
[2020-03-20] MEDS: SODIUM CHLORIDE 0.45% 1,000 ML IV SCH (05:29)
[2020-03-20] MEDS: cefTRIAXone 2,000 MG in SYRINGE 1 EACH IV SCH (08:45)
[2020-03-20] MEDS: amLODIPine 5 MG TABLET PO SCH ×2 (08:45→22:25)
[2020-03-20] MEDS: ASPIRIN EC 81 MG TABLET PO SCH (08:45)
[2020-03-20] MEDS: DOCUSATE SODIUM 100 MG CAPSULE PO SCH ×2 (08:45→22:24)
[2020-03-20] MEDS: LEVOTHYROXINE 150 MCG TABLET PO SCH (08:45)
[2020-03-20] MEDS: CLOPIDOGREL 75 MG TABLET PO SCH (08:45)
[2020-03-20] MEDS: CHOLECALCIFEROL 5,000 UNIT TABLET PO SCH (08:45)
[2020-03-20] MEDS: PANTOPRAZOLE 40 MG TABLET PO SCH (08:45)
[2020-03-20] MEDS: SIMVASTATIN 10 MG TABLET PO SCH (22:25)
[2020-03-20] MEDS: ACETAMINOPHEN 500 MG TABLET PO PRN (22:27)
[2020-03-21] MEDS: INSULIN REGULAR 100 UNIT/ML SUBCUT SCH ×4 (01:24→15:01)
[2020-03-21] MEDS: SODIUM CHLORIDE 0.45% 1,000 ML IV SCH (01:25)
[2020-03-21] MEDS: amLODIPine 5 MG TABLET PO SCH (10:40)
[2020-03-21] MEDS: CLOPIDOGREL 75 MG TABLET PO SCH (10:40)
[2020-03-21] MEDS: DOCUSATE SODIUM 100 MG CAPSULE PO SCH ×2 (10:40→11:18)
[2020-03-21] MEDS: LEVOTHYROXINE 150 MCG TABLET PO SCH (10:40)
[2020-03-21] MEDS: PANTOPRAZOLE 40 MG TABLET PO SCH (10:40)
[2020-03-21] MEDS: CHOLECALCIFEROL 5,000 UNIT TABLET PO SCH (10:40)
[2020-03-21] MEDS: ASPIRIN EC 81 MG TABLET PO SCH (11:00)
[2020-03-21] MEDS: cefTRIAXone 2,000 MG in SYRINGE 1 EACH IV SCH (11:13)
[2020-03-21 15:32] VITALS: BP 140/48
== END 2020-03-21 15:01 | disposition home or self-care (01) | DRG 642 ==
LOC: EDUNIT# → EDBD → N.ED 10:39 → N.EDINP 13:46 → N.2E 14:08
PROVIDERS: ADMIT Family Medicine; ATTEND Family Medicine